=== PATIENT | female | born 1930 | race Caucasian/White ===

== ENCOUNTER 2016-08-10 12:39 | Emergency (ER) | payer MEDICARE ==
[~2016-08-10] VITALS: Ht 162.6 cm; Wt 75.0 kg
[~2016-08-10 12:39] MED LIST: AMLO-39 PO; ASPI-351 PO; ATEN100T4 PO; CREST10T PO; Calcium 600 + Vit D; INSU100I9 SUBQ; Insulin Lispro SUBQ; Isosorbide Mononitrate PO; Magnesium Oxide PO; NIAC500SA PO; POTA10TA14 PO
[2016-08-10 12:53] VITALS: BP 98/54; PULSE 63; RESP 16; O2SAT 95
--- NOTE | 2016-08-10 13:38 | ED.REPORT ---
HPI-Trauma Minor / Fall Date of Service Aug 10, 2016 ED Provider: Inocente Gonsales PA-C 85-year-old female resident of [facility] living brought in by EMS for left knee pain. She reports that she fell yesterday when she slipped on ice. Denies syncope/presyncope, dizziness. She struck her face on the pavement as well as her hands and left knee. Suffered a bloody nose. Admits increased confusion, denies headache, losing consciousness, vomiting. She is unsure if she takes blood thinners. Denies neck pain, weakness/numbness in her limbs. Has worsening pain in her left knee though she is able to ambulate using a walker, but she sometimes have sensation of the knee giving out. Complains of pain in both hands. Denies difficulty breathing, chest pain, abdominal pain, vomiting, diarrhea. Nursing Notes Stated Complaint: GLF/LEFT KNEE PAIN Chief Complaint: Multiple Trauma/Fall Nursing Notes Reviewed: Yes Allergies: Coded Allergies: Barbiturates (Verified Allergy, Unknown, 08/10/16) Penicillins (Verified Allergy, Unknown, 10/20/13) latex (Verified Allergy, Unknown, 08/10/16) metformin (Verified Allergy, Unknown, 10/20/13) metronidazole (Verified Allergy, Unknown, 10/20/13) primidone (Verified Allergy, Unknown, 10/20/13) simvastatin (Verified Allergy, Unknown, 10/20/13) trazodone (Verified Allergy, Unknown, 10/20/13) adhesive tape (Verified Adverse Reaction, Intermediate, Rash, 10/20/13) Scheduled ([Calcium 600 + Vit D]) DAILY ([Isosorbide Mononitrate]) 30 MG TABLET.ER 60 MG PO 0730 ([Insulin Lispro]) 100 UNIT/ML UNIT 0 UNIT SUBQ TID-INSULIN ([Magnesium Oxide]) 400 MG TABLET 400 MG PO BID Amlodipine (Norvasc) 5 Mg Tablet 10 MG PO DAILY Aspirin-Expunged Drug, Do Not Renew! (Aspirin-Expunged Drug, Do Not Renew!) 325 Mg Tablet 325 MG PO DAILY Atenolol-Expunged Drug, Do Not Renew! (Atenolol-Expunged Drug, Do Not Renew!) 100 Mg Tablet 50 MG PO DAILY Insulin Detemir (Levemir U100 Flexpen Insulin) 100 Unit/Ml Insuln.pen 40 UNIT SUBQ BID Niacin-Expunged Drug, Do Not Renew! (Niaspan-Expunged Drug, Do Not Renew!) 500 Mg Tablet.er 500 MG PO HS Potassium Chloride ER (Klor-Con M10) 10 Meq Tabsr 10 MEQ PO BID Rosuvastatin-Expunged Drug, Do Not Renew! (Crestor-Expunged Drug, Do Not Renew! ) 10 Mg Tablet 10 MG PO DAILY General Time Seen by MD: 12:57 Chief Complaint Fall Past Medical History Past Medical History 1. Coronary artery disease. Status post [place] around in 2003 and status post heart catheterization without intervention. Repeat heart catheterization in 2010 with multi-vessel disease, medically managed. Patient tells me she has not been back to see a screen tacker since then. 2. Hypertension. 3. Diabetes mellitus type 2. 4. Hyperlipidemia. 5. Chronic obstructive pulmonary disease. 6. Chronic kidney disease stage 3. 7. Gout. 8. Hyperlipidemia. Past Surgical History 1. Total abdominal hysterectomy and bilateral salpingo-oophorectomy. 2. Small intestinal resection. 3. Cholecystectomy Family History noncontributory Smoking History Smoker Current Status UNK Social History Lives at [facility]. Alcohol Use: Denies alcohol use Drug Use: Denies drug use Other Social History: Local resident Ambulatory Status Independent Review of Systems Negative unless stated otherwise in history of present illness Physical Exam General: Well appearing, well developed, well nourished, no acute distress. Head: Atraumatic, normocephalic. No mastoid tenderness. No raccoon eyes or Golden sign Eyes: No scleral icterus or injection. No discharge. PERRL. Vision grossly intact. Ears: Pinna and tragus nontender with manipulation. External auditory canal patent, atraumatic and without discharge. Tympanic membrane lawrence, shiny and translucent without fluid, bulging, retraction or perforation. Hearing grossly intact. Nose: 2 cm abrasion on bridge of nose as well as a 2 cm abrasion on the upper lip. Nares crusted with dried blood. Symmetrical, nares patent. No septal hematoma. No frontal or maxillary sinus tenderness. Mouth/pharynx: normal dentition, mucus membranes moist. Tonsils 2+ and symmetrical, uvula midline. Pharynx noninjected, no cobblestoning or discharge. Voice clear. Neck: Full range of motion. No midline cervical tenderness, anterior tenderness or lymphadenopathy. Trachea midline. Respiratory: Regular rate and rhythm. Breath sounds present, clear to auscultation and equal bilaterally. No respiratory distress. No increased work of breathing, speaks in complete sentences. Cardiovascular: Regular rate and rhythm, without murmur, gallop or rub. No pedal edema. Gastrointestinal: Abdomen flat and non-tender without guarding or rebound. Bowel sounds normoactive. Skin: Warm and dry. Left hip: Nontender full range of motion. Left knee: Small abrasions over patella, no obvious effusion. Isolated patellar tenderness. No Pavon's cyst. Left ankle: Nontender full range of motion. DP and PT pulses not appreciated bilaterally. Left hand: Bruising over the thenar eminence and first metacarpal. Moderate anatomical snuffbox tenderness and tenderness with axial loading of the first metacarpal. Full strength and range of motion in MCP, PIP and DIP joints Left elbow: Nontender, full range of motion Right hand: Normal to inspection, mild tenderness over the thenar eminence and anatomical snuffbox. Minimal tenderness with axial loading of the first metacarpal. Full strength and range of motion in MCP, PIP and DIP joints Right elbow: Nontender, full range of motion Neurological: Sensation and strength grossly intact and distal extremities Cranial nerves: Vision grossly intact, PERRL, EOMI. Facial motion symmetrical, sensation to light touch over forehead, maxilla and mandible present and equal B /L. Voice clear and fluent, no drooling/pooling of saliva, uvula rises midline. Psychological: Alert and oriented. Speech appropriate, linear and logical. Behavior appropriate. Initial Vital Signs Vital Signs (First) Date Time Temp Pulse Resp B/P Pulse Ox O2 Delivery O2 Flow Rate FiO2 08/10/16 12:53 36.1 63 16 98/54 95 Room Air Initial VS: Reviewed, Vital signs normal Interpretation & Diagnostics X-Ray Interpretation Xray Interpretation: PROCEDURE: X-RAY LEFT HAND, MINIMUM THREE VIEWS ([id number]) INDICATIONS: scaphoid tenderness IMPRESSION: No acute fracture. No osseous lesion. If symptoms and/or clinical suspicion for pathology persist, further assessment with repeat, or advanced imaging (e.g., CT, MRI, or bone scan) may be helpful for further assessment. Osteoarthritis. Osteopenia. PROCEDURE: X-RAY RIGHT HAND, MINIMUM THREE VIEWS ([id number]) INDICATIONS: scaphoid tenderness IMPRESSION: No acute fracture. No osseous lesion. If symptoms and/or clinical suspicion for pathology persist, further assessment with repeat, or advanced imaging (e.g., CT, MRI, or bone scan) may be helpful for further assessment. PROCEDURE: X-RAY LEFT KNEE, ONE OR TWO VIEWS ([id number]) INDICATIONS: PAIN/ GROUND LEVEL FALL IMPRESSION: 1. Knee joint effusion. 2. No acute fracture. No osseous lesion. If symptoms and/or clinical suspicion for pathology persist, further assessment with repeat, or advanced imaging (e.g., CT, MRI, or bone scan) may be helpful for further assessment. CT Head Interpretation PROCEDURE: CT BRAIN WITHOUT CONTRAST ([id number]) INDICATIONS: fall, facial trauma IMPRESSION: No acute intracranial abnormality. CT C-Spine Interpretation PROCEDURE: CT CERVICAL SPINE WITHOUT CONTRAST ([id number]) INDICATIONS: fall, facial trauma IMPRESSION: 1. No fracture. 2. Multilevel degenerative disc and facet disease Re-Eval/Medical Decision Med Decision/Clinical Course Attending note: I saw and reevaluated this patient at the request of our physician chemical laboratory assistant. I agree with his discharge plan. There is no anatomic snuffbox tenderness at either wrist. PA medical decision [age]-year-old female presents with a chief complaint of left knee pain following a fall yesterday. She reports slipping and falling on ice, catching herself with her hands and striking her face against the pavement. She denies losing consciousness, vomiting, headache but admits to a sense of confusion. Complains of pain in both hands as well as her left knee. She is able to ambulate and the knee using a walker at home, but finds it painful. Physical exam reveals abrasions to the patient's nose and upper lip, bruising over the left thumb as well as tenderness over both thenar eminences with question of anatomical snuffbox tenderness. Left knee has isolated patellar tenderness and a small abrasion. No laxity, redness, swelling, heat or effusion noted. Perform CT of the brain justified by the [place] head CT rules based on age. Results normal. Perform CT of the cervical spine. I do not feel I can clear her by Nexus criteria due to her concern for other injuries and confusion. Results negative X-rays of the hands reveal no bony injuries. Reexamination by both myself and Dr. Campbell are negative for snuffbox tenderness. X-rays of the knee reveals effusion but no bony injury. At this point I am reassured there is no serious intracranial injury, cervical spine injury, fractures, occult scaphoid fractures, knee fracture or spontaneously reduced knee dislocation. Placed knee in a long knee immobilizer, road tested her with a walker. She feels ready for discharge and return to her residence. Advise primary care follow-up, provided emergency return precautions. Patient understands and agrees with the plan. Re-Evaluation/Progress : Time of Eval: 15:09 Re-Evaluation/Progress Note: Discussed the x-ray findings with the patient. I reexamined her hands. I thought her left hand still quite tender however tenderness appears to be centered over the proximal phalanx, with only mild tenderness at the anatomical snuffbox. Her right hand is significantly less tender at this point, with essentially no tenderness over the anatomical snuffbox or with axial loading of the first metacarpal. Discharge & Departure Impression: Primary Impression: Knee effusion, left Additional Impressions: Contusion of left hand Encounter type: initial encounter Qualified Code: S60.222A - Contusion of left hand, initial encounter Contusion of right hand Encounter type: initial encounter Qualified Code: S60.221A - Contusion of right hand, initial encounter Head contusion Encounter type: initial encounter Contusion of head detail: nose Qualified Code: S00.33XA - Contusion of nose, initial encounter Disposition: Home Discharge Condition All VS Reviewed: Yes Condition: Stable Patient Instructions: Contusions in Adults (ED), Splint Care (ED) Additional Instructions: Evaluation in the emergency department following a fall. CT scans of your head and neck revealed no brain or cervical spine injury. X-rays of your hands and left knee revealed no fractures. You do have fluid in your knee which is likely causing some of your pain. I believe you suffered a number of contusions in your fall. Your pain and swelling should resolve on its own over the next week or so. I will give you a brace to support your left knee while it heals. Use this along with your walker as long as you feel unstable. Follow -up with your primary care provider in the next few days to monitor your progress. Elevate your knee as much as possible. The pain is best treated with 400 mg of ibuprofen (Advil, Motrin) every 6 hours, or 650 mg of acetaminophen (Tylenol) every 6 hours. These drugs can be taken at the same time for more severe pain. Return to emergency department for any new or worsening symptoms including increasing pain, severe or sudden headache, difficulty speaking, new neurological symptoms. Referrals: Dexter Diehl MD (PCP) EDSupervising Provider for APC: Robert Thompson DO Attending Statement I have seen and examined the patient. I have reviewed the chart and agree with the documentation as recorded by the Midlevel Provider, including assessment, treatment plan, and disposition. Findings from my exam are included in documentation above. copies to: Dexetr Diehl MD, Seth PA-C Aug 10, 2016 13:38 Robert Thompson DO Aug 10, 2016 15:37
--- NOTE | 2016-08-10 14:15 | DRSVH ---
PROCEDURE: CT BRAIN WITHOUT CONTRAST ([id number]) INDICATIONS: fall, facial trauma TECHNIQUE: Noncontrast 4.5 mm thick angled axial sections acquired from the foramen magnum to the vertex, with c oronal reformats. COMPARISON: None. FINDINGS: Image quality: Excellent. CSF spaces: Basal cisterns are patent. No extra-axial fluid collections. The ventricles are symmet silvio in size and shape. Brain: No intracranial bleeds or masses. There is cerebral volume loss for age, with resultant vent ricular and sulcal prominence. There are periventricular and deep white matter chronic small vessel ischemic changes. There is intracranial internal carotid artery atherosclerosis. Skull and face: Calvarium and visualized facial bones appear intact, without suspicious lesions. Sinuses: Visualized sinuses and mastoids are clear. IMPRESSION: No acute intracranial abnormality. Dictated by: Kathy Ellis M.D. on 08/10/2016 at 14:12 Approved by: Kathy Ellis M.D. on 08/10/2016 at 14:13
--- NOTE | 2016-08-10 14:17 | DRSVH ---
PROCEDURE: CT CERVICAL SPINE WITHOUT CONTRAST ([id number]) INDICATIONS: fall, facial trauma TECHNIQUE: Noncontrast 3 mm thick sections acquired from the skull base to the T4 level. Sagittal and coronal r eformats were then constructed. For radiation dose reduction, the following was used: automated exp osure control, adjustment of mA and/or kV according to patient size. COMPARISON: None. FINDINGS: Image quality: Excellent. Bones: No fractures or dislocations. Visualized superior ribs are intact. Multilevel endplate oste ophytes and disc space narrowing. Multilevel facet hypertrophy. Mild grade 1 anterolisthesis of C4 on C5. Mild grade 1 anterolisthesis of C6 on C7. Soft tissues: Prevertebral soft tissues are normal in thickness. No paravertebral hematomas. No ap ical pneumothoraces. IMPRESSION: 1. No fracture. 2. Multilevel degenerative disc and facet disease. Dictated by: Kathy Ellis M.D. on 08/10/2016 at 14:13 Approved by: Kathy Ellis M.D. on 08/10/2016 at 14:15
--- NOTE | 2016-08-10 14:48 | DRSVH ---
PROCEDURE: X-RAY LEFT KNEE, ONE OR TWO VIEWS ([id number]) INDICATIONS: PAIN/ GROUND LEVEL FALL TECHNIQUE: 2 views of the knee were acquired. COMPARISON: None. FINDINGS: Bones: No fractures or dislocations. No suspicious bony lesions. Soft tissues: Moderate knee joint effusion. No suspicious soft tissue calcifications. IMPRESSION: 1. Knee joint effusion. 2. No acute fracture. No osseous lesion. If symptoms and/or clinical suspicion for pathology persist, further assessment with repeat, or advanced imaging (e.g., CT, MRI, or bone scan) may be helpful for further assessment. Dictated by: Kathy Ellis M.D. on 08/10/2016 at 14:42 Approved by: Kathy Ellis M.D. on 08/10/2016 at 14:42
--- NOTE | 2016-08-10 14:49 | DRSVH ---
PROCEDURE: X-RAY RIGHT HAND, MINIMUM THREE VIEWS ([id number]) INDICATIONS: scaphoid tenderness TECHNIQUE: 3 views of the hand(s) acquired. COMPARISON: None. FINDINGS: Bones: No fractures or dislocations. Carpal bones are normally aligned. No suspicious bony lesions . Soft tissues: No suspicious soft tissue calcifications. IMPRESSION: No acute fracture. No osseous lesion. If symptoms and/or clinical suspicion for patholog y persist, further assessment with repeat, or advanced imaging (e.g., CT, MRI, or bone scan) may be h elpful for further assessment. Dictated by: Kathy Ellis M.D. on 08/10/2016 at 14:43 Approved by: Kathy Ellis M.D. on 08/10/2016 at 14:43
--- NOTE | 2016-08-10 14:49 | DRSVH ---
PROCEDURE: X-RAY LEFT HAND, MINIMUM THREE VIEWS ([id number]) INDICATIONS: scaphoid tenderness TECHNIQUE: 3 views of the hand(s) acquired. COMPARISON: None. FINDINGS: Bones: Diffuse osteopenia. Joint space narrowing and periarticular osteophyte formation at the 1st c arpometacarpal joint. No fractures or dislocations. Carpal bones are normally aligned. No suspiciou s bony lesions. Soft tissues: No suspicious soft tissue calcifications. IMPRESSION: No acute fracture. No osseous lesion. If symptoms and/or clinical suspicion for patholog y persist, further assessment with repeat, or advanced imaging (e.g., CT, MRI, or bone scan) may be h elpful for further assessment. Osteoarthritis. Osteopenia. Dictated by: Kathy Ellis M.D. on 08/10/2016 at 14:42 Approved by: Kathy lElis M.D. on 08/10/2016 at 14:43
[2016-08-10 15:21] VITALS: BP 103/56; PULSE 57; RESP 20; O2SAT 93
[2016-08-10 18:00] VITALS: BP 132/67; PULSE 74; RESP 16; O2SAT 98
== END 2016-08-10 18:02 | disposition home or self-care (01) ==
LOC: SED 12:39 → EDBD 12:39 → EDUNIT# 12:39 → SED 18:02
DX: M25.462 Effusion, left knee (principal); S60.221A Contusion of right hand, initial encounter; S60.222A Contusion of left hand, initial encounter; S00.33XA Contusion of nose, initial encounter; W00.0XXA Fall on same level due to ice and snow, initial encounter; Y92.9 Unspecified place or not applicable; Y93.9 Activity, unspecified; Y99.9 Unspecified external cause status; I25.10 Atherosclerotic heart disease of native coronary artery without angina pectoris; I25.2 Old myocardial infarction; I12.9 Hypertensive chronic kidney disease with stage 1 through stage 4 chronic kidney disease, or unspecified chronic kidney disease; N18.3 Chronic kidney disease, stage 3 (moderate); E11.22 Type 2 diabetes mellitus with diabetic chronic kidney disease; E78.5 Hyperlipidemia, unspecified; J44.9 Chronic obstructive pulmonary disease, unspecified; M10.9 Gout, unspecified; Z79.82 Long term (current) use of aspirin; Z79.4 Long term (current) use of insulin; Z88.0 Allergy status to penicillin; Z88.8 Allergy status to other drugs, medicaments and biological substances

== ENCOUNTER 2016-09-17 08:31 | Inpatient (IN) | payer MEDICARE ==
[2016-09-17] VITALS (9 sets, daily range): BP systolic 133–168; BP diastolic 47–78; PULSE 58–73; RESP 17–26; O2SAT 92–98
[~2016-09-17] VITALS: Ht 162.6 cm; Wt 73.0 kg
[2016-09-17 08:55] LABS: BASOPHILS % (AUTO) 0.2 % (0-3); EOSINOPHILS % (AUTO) 2.9 % (0-5); MONOCYTES % (AUTO) 5.9 % (4-12); Mean Corpuscular Hemoglobin 28.5 pg (27.0-35.0); Mean Corpuscular Volume 84.8 fL (81-100); NEUTROPHILS % (AUTO) 69.6 % (40-74); Platelet Count 270 bil/L (150-400)
[2016-09-17] MEDS ORDERED: Ondansetron 2 mg/mL 2 mL Inj IVPUSH PRN ×2 (08:55→13:40)
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
--- NOTE | 2016-09-17 09:21 | DRSVH ---
PROCEDURE: X-RAY CHEST ONE VIEW, PORTABLE ([id number]) INDICATIONS: CHEST PAIN TECHNIQUE: One view of the chest was acquired. COMPARISON: [facility], CR, CHEST 1VW (PORTABLE), 12/31/2013, 23:52. [facility], CT, CHEST ANGIO-PE, 10/15/2013, 0:03. [facility], CR, CHEST 1VW (PORTABLE), 4, 11:59. FINDINGS: Surgical changes and devices: None. Lungs and pleura: The aeration of the lungs is similar to the previous exam. There is no focal conso lidation, effusion, or pneumothorax. No overt heart failure is evident. Mediastinum: Mediastinal contours appear normal. Heart size is normal. There is prominent aortic a therosclerosis. Bones and chest wall: No suspicious bony lesions. Overlying soft tissues appear unremarkable. IMPRESSION: Stable chest. No acute cardiopulmonary process is evident. Dictated by: Richie Goncalves M.D. on 09/17/2016 at 8:18 Approved by: Richie Goncalves M.D. on 09/17/2016 at 8:19
[2016-09-17 09:27] LABS: TROPONIN T < 0.010 ug/L (0.0-0.011)
[2016-09-17 09:33] LABS: Magnesium 1.6 mg/dL (1.6-2.6)
[2016-09-17] MEDS ORDERED: Nitroglycerin 2% 1 Gm Ointment TOPICAL SCH (10:20)
--- NOTE | 2016-09-17 13:01 | DRSVH ---
PROCEDURE: CT ANGIO CHEST PULMONARY EMBOLISM ([id number]) INDICATIONS: CP, dimer TECHNIQUE: After the administration of intravenous contrast, 2 mm thick sections acquired from the pulmonary api loraine to the posterior costophrenic angles. 3-dimensional maximum intensity projection (MIP) coronal a nd sagittal reformats were then acquired through the thorax. For radiation dose reduction, the follo wing was used: automated exposure control, adjustment of mA and/or kV according to patient size. COMPARISON: [facility], CT, CHEST ANGIO-PE, 01/01/2014, 1:58. FINDINGS: Image quality: Excellent. Pulmonary arteries: Pulmonary arteries are normal in size, and demonstrate no intraluminal filling d efects to suggest central pulmonary embolism. Lungs and pleura: Lungs are clear. There is mild centrilobular emphysema with apical predominance. No pleural effusions or pneumothorax. Central and peripheral airways are patent. Mediastinum: Heart size is normal, without pericardial effusion. No mediastinal or hilar adenopathy . Thoracic aorta is normal in caliber and enhancement. Scattered atheromatous calcifications are pre sent within the aortic arch. Esophagus is normal in caliber. There is a small hiatal hernia. Bones and chest wall: No suspicious bony lesions. Ribs and thoracic spine appear intact throughout. 2 low-density expansile lesions are present within the right thyroid lobe. These were present on the study dated 01/01/14 and are similar in size. Left thyroid lobe is unremarkable. No axillary or supra clavicular adenopathy. Abdomen: Visualized upper abdominal solid organs appear normal in the early arterial phase of enhanc ement. IMPRESSION: 1. No acute pulmonary embolus. 2. Low-density lesions within the right thoracic lobe. If further characterization is warranted, none mergent pelvic ultrasound may be helpful. Dictated by: Laura Licona M.D. on 09/17/2016 at 12:51 Approved by: Laura Licona M.D. on 09/17/2016 at 12:57
[2016-09-17] MEDS ORDERED: Polyethylene Glycol (PEG) 17 Gm Powder PO PRN (13:40)
[2016-09-17] MEDS ORDERED: Alum-Mag Hydrox-Simeth 30 mL Suspension PO PRN ×2 (13:40→21:05)
[2016-09-17] MEDS ORDERED: ASPI325T32 PO (13:54)
[2016-09-17] MEDS ORDERED: CHOL200047 PO (13:54)
[2016-09-17] MEDS ORDERED: CITA20TA11 PO (13:54)
[2016-09-17] MEDS ORDERED: MAG-95 PO (13:54)
[2016-09-17] MEDS ORDERED: INSU100V4 SUBQ ×2 (13:54)
[2016-09-17] MEDS ORDERED: ACET325C PO (13:54)
[2016-09-17] MEDS ORDERED: LORA10CA PO (13:54)
[2016-09-17] MEDS ORDERED: LOPE2CAP PO (13:54)
[2016-09-17] MEDS ORDERED: ISOS60TA2 PO (13:54)
[2016-09-17] MEDS ORDERED: PROP160C2 PO (13:54)
[2016-09-17] MEDS ORDERED: MAGN400O4 PO (13:54)
[2016-09-17] MEDS ORDERED: INSLIS SUBQ ×3 (13:54)
[2016-09-17] MEDS ORDERED: AMLO10TA3 PO (13:54)
[2016-09-17] MEDS ORDERED: ROSU10TA24 PO (13:54)
[2016-09-17] MEDS ORDERED: DEXT1DRO8 BOTH_EYES (13:54)
[2016-09-17] MEDS ORDERED: HYDROmorphone 0.5 mg/0.5 mL iSecure Syringe IVPUSH ONE ×2 (14:40→16:15)
--- NOTE | 2016-09-17 17:01 | NUR ---
ADMIT Pt arrived to unit from ED at 1701. Pt ambulated to restroom with this RN and FFW, steady gait. Per ED report patient had one BM and voidedX2. Pt reported recent fall; fall precautions in place and bed alarm on. Vital signs WNL. Pt is alert and oriented to self only. Pt complained of 5/10 left upper breast pain. Administered 650mg PO Tylenol. MD at beside upon arrival. Pt tolerated PO food and fluids with out any difficulty. Med rec completed by admit nurse.
--- NOTE | 2016-09-17 19:36 | PCM.HPMED ---
Subjective Date of Service Sep 17, 2016 Primary Provider: Admitting Physician: Keny Burrell MD Primary Care Physician: Dexter Diehl MD Attending Physician: Keny Burrell MD Chief Complaint: Chest pain History of Present Illness: The patient is an 85-year-old white female with dementia, coronary disease, hypertension, COPD and diabetes who was unable to tell me where she lives due to her dementia and poor memory. She according to the records lives at [facility] and she began complaining of what she initially told me was leg cramps. She had forgotten Kellee Mendez about the chest pain. I asked her about the chest pain she then described that she had severe chest pain this morning that made her want to "scream". According to the records the patient began complaining to the staff at [facility] of intermittent moderate chest pain/ pressure with an onset around 8 AM. The pain radiated to her left arm at the time. So should his symptoms included shortness of breath, left knee pain, chest pain with movement. Patient denied diaphoresis, nausea, lower extremity swelling. The patient reported that she went to get up and this morning and had instant pain in her left chest radiating to her left breast. Pain was exacerbated by movement. The patient reported to me that she fell a couple of days prior to admission. She then stated 4 days prior to admission. She then after that stated a week prior to admission. And according to the medical record in the ER doctor's note she stated that she fell a couple weeks prior to admission. She stated that she tripped on a seen on the concrete sidewalk outside of the [facility] manner. She said when she fell she landed on her hands with the palms down to prevent her from hitting her face and her right knee she states that the staff at [facility] has been putting ice on her right knee is starting to feel better. Today she woke up with chest pain which along this episode lasted for approximately 15 minutes. She denied any previous chest pain with movement following the fall denies any head injury following a fall. Patient was evaluated in the emergency room by Dr. Quincy Harley. The patient was found to have a slightly elevated white blood cell count of 11.9 her CBC was otherwise unremarkable. Troponin was drawn which was less than 0.010 and a magnesium level was found to be low at 1.6 there are no acute findings evident on EKG which showed normal sinus rhythm with a rate of 62, there was left ventricular hypertrophy, there is evidence of previous inferior and anterior infarct, overall however the EKG was unchanged compared with 2010 a d-dimer was performed which was found to be marginally elevated the CT Michael Wills was obtained and this was negative for pulmonary embolism. The patient received aspirin and Nitropaste. Given her elevated HEART score the patient was brought in under observation to the hospital service for further evaluation and treatment. Review of Systems: General: Patient has no general complaints other than a reduction in her ability to remember things. HEENT: Patient has no headache, patient has no diplopia, patient has no changes in vision. Patient had left eye cataract surgery. Patient has no problems with their ears, nose or throat. Patient has no known new dental problems. Patient has no pharyngitis or history of thrush. Neck: Patient has no stiffness in the neck. Patient has no lymphadenopathy. Patient has no other problems with their neck. Pulmonary: Patient has no shortness of breath, no cough, no expectoration of sputum. Patient has no pleurisy. Patient has chest pain with movement and pressure applied to the anterior part of her left breast/chest. Patient has no history of asthma or COPD. Cardiovascular: Patient has no chest pain at current time. For description of previous chest pain please refer to history of present illness. Patient has no history of heart murmur. Patient has no palpitations. Patient has a history of a myocardial infarction in 2003. Patient has history of coronary artery disease. She underwent a coronary artery catheterization in 2010 was found to have multivessel disease which of the time was medically managed. Gastrointestinal: Patient has no history of hepatitis A, B or C. Patient has no history of peptic ulcer disease. Patient has no history of gastroesophageal reflux disease. Patient has no history of nausea, vomiting, or diarrhea. Patient has no history of hematemesis, hematochezia, or melena. Patient has no history of colitis. Renal: Patient has no history of kidney disease. No history of kidney stones. Genitourinary: Patient has no history of dysuria or frequency, or incontinence. Patient has no previous history of genitourinary problems. Musculoskeletal: Patient has no history of muscular skeletal problems. Neurologic: Patient has no history of stroke, no history of seizure, no history of TIA. However she has had some situational depression as she lost her of over 62 years and her oldest daughter within the last year. Psychiatric: Patient has no history of psychiatric problems. The remainder of the entire review of systems was reviewed with patient and is as mentioned above otherwise negative. Allergies Coded Allergies: Barbiturates (Verified Allergy, Unknown, 09/17/16) Penicillins (Verified Allergy, Unknown, 09/17/16) latex (Verified Allergy, Unknown, 09/17/16) metformin (Verified Allergy, Unknown, 09/17/16) metronidazole (Verified Allergy, Unknown, 09/17/16) primidone (Verified Allergy, Unknown, 09/17/16) simvastatin (Verified Allergy, Unknown, 09/17/16) trazodone (Verified Allergy, Unknown, 09/17/16) adhesive tape (Verified Adverse Reaction, Intermediate, Rash, 09/17/16) PMH 1. Coronary artery disease. Status post HI around in 2003 and status post heart catheterization without intervention. Repeat heart catheterization in 2010 with multi-vessel disease, medically managed. 2. Hypertension. 3. Diabetes mellitus type 2. 4. Hyperlipidemia. 5. Chronic obstructive pulmonary disease. 6. Chronic kidney disease stage 3. 7. Gout. 8. Hyperlipidemia. 9. History of dementia Surgical History 1. Total abdominal hysterectomy and bilateral salpingo-oophorectomy. 2. Small intestinal resection. 3. Cholecystectomy 4. s/p cardiac catherization 2010 5. Left eye cataract surgery Family History The patient's mother at 87 palpitations of diabetes mellitus. The patient thinks her father at the age of 85 of cancer she does not know what type. The patient has 7 sisters they have all of cancer or heart disease. One of breast cancer. The patient had 2 brothers both of cancer. She was unable to elaborate on any of the cancer diagnoses other than the one sister with breast cancer. Social History Occupation: retired Hx Alcohol Use: No Hx Substance Use: No Hx Tobacco Use: Yes (3-5 cigs/day) Smoking Status: Current Every Day Smoker (The patient currently smokes one half pack per day.) Living Arrangement: Assisted Living (The patient lives at [facility].) Additional Information The patient warmed was born in [facility]. She met her while he was on a cruise in [place]. She her at the age of 22. She stayed to him until his within the last year. Patient was for over 62 years. Patient completed the ninth grade and never went further in school. She is 2 para 2 with one daughter who lives in [place] and an older daughter who of cancer. Patient denies drinking a significant amount of alcohol. She states she was not much of a drinker. She still smokes since continues to smoke a half pack per day right up until the time of admission. She lives at [facility]. Exam Vital Signs Vital Sign - Last Date Time Temp Pulse Resp B/P Pulse Ox O2 Delivery O2 Flow Rate FiO2 09/17/16 17:14 64 09/17/16 17:01 36.5 19 144/78 96 Room Air Exam General: Patient is in no apparent distress. HEENT: Head is atraumatic and normocephalic. Eyes: Pupils are equally round and reactive to light and accommodation. Extraocular muscles are intact. Sclera are white, anicteric. Subconjunctival mucosa is pink. Ears and nose are unremarkable. Oropharynx: There is no mucosal lesions, there is no thrush, there is no pharyngitis. Neck: Is supple, there are no nodes, or masses or tenderness. Chest: Is clear to auscultation and percussion. There are no rales, rhonchi, wheezes or rubs. There is tenderness over the left breast and chest wall in the right upper quadrant and left upper quadrant of the breast. The left breast was examined with the 2 female nursing scheduler present. The right breast was not examined at this time. There is no erythema, there was no masses , there is no increased warmth or any other sign of infection of the left breast. There is no discharge from the nipple. Heart: Rate, rhythm is regular. There is no murmur, rub or gallop. Abdomen: Good bowel sounds are present. Abdomen is soft, nontender, no organomegaly or masses were appreciated. Extremities: Are symmetrical and well perfused. There is no edema, there is no cellulitis, no rash. Neurologic: There are no focal neurological deficits. Cranial nerves II through XII are intact. There are no sensory or motor deficits. However, the patient has very poor memory and is a very poor historian. She could not tell me where she lives and she initially could not tell me about her chest pain until I mentioned it. Once her memory was jagged however she was able to expound on the history of her chest pain etc. Psychiatric: Patients mood is calm and shows no sign of agitation. Genital: Deferred Rectal: Deferred Lab and Diagnostics Result Diagram: 09/17/16 0835 09/17/16 0835 X-Rays, CTs and MRIs PROCEDURE: CT ANGIO CHEST PULMONARY EMBOLISM ([id number]) INDICATIONS: CP, dimer TECHNIQUE: After the administration of intravenous contrast, 2 mm thick sections acquired from the pulmonary apices to the posterior costophrenic angles. 3-dimensional maximum intensity projection (MIP) coronal and sagittal reformats were then acquired through the thorax. For radiation dose reduction, the following was used: automated exposure control, adjustment of mA and/or kV according to patient size. COMPARISON: [facility], CT, CHEST ANGIO-PE, 01/01/2014, 1:58. FINDINGS: Image quality: Excellent. Pulmonary arteries: Pulmonary arteries are normal in size, and demonstrate no intraluminal filling defects to suggest central pulmonary embolism. Lungs and pleura: Lungs are clear. There is mild centrilobular emphysema with apical predominance. No pleural effusions or pneumothorax. Central and peripheral airways are patent. Mediastinum: Heart size is normal, without pericardial effusion. No mediastinal or hilar adenopathy. Thoracic aorta is normal in caliber and enhancement. Scattered atheromatous calcifications are present within the aortic arch. Esophagus is normal in caliber. There is a small hiatal hernia. Bones and chest wall: No suspicious bony lesions. Ribs and thoracic spine appear intact throughout. 2 low-density expansile lesions are present within the right thyroid lobe. These were present on the study dated 01/01/14 and are similar in size. Left thyroid lobe is unremarkable. No axillary or supraclavicular adenopathy. Abdomen: Visualized upper abdominal solid organs appear normal in the early arterial phase of enhancement. IMPRESSION: 1. No acute pulmonary embolus. 2. Low-density lesions within the right thoracic lobe. If further characterization is warranted, nonemergent pelvic ultrasound may be helpful. Dictated by: Laura Licona M.D. on 09/17/2016 at 12:51 Approved by: Laura Licona M.D. on 09/17/2016 at 12:57 PROCEDURE: X-RAY CHEST ONE VIEW, PORTABLE ([id number]) INDICATIONS: CHEST PAIN TECHNIQUE: One view of the chest was acquired. COMPARISON: [facility], CR, CHEST 1VW (PORTABLE), 12/31/2013, 23: 52. [facility], CT, CHEST ANGIO-PE, 10/15/2013, 0:03. [facility], CR, CHEST 1VW (PORTABLE), 10/13/2013, 11:59. FINDINGS: Surgical changes and devices: None. Lungs and pleura: The aeration of the lungs is similar to the previous exam. There is no focal consolidation, effusion, or pneumothorax. No overt heart failure is evident. Mediastinum: Mediastinal contours appear normal. Heart size is normal. There is prominent aortic atherosclerosis. Bones and chest wall: No suspicious bony lesions. Overlying soft tissues appear unremarkable. IMPRESSION: Stable chest. No acute cardiopulmonary process is evident. Dictated by: Richie Goncalves M.D. on 09/17/2016 at 8:18 Approved by: Richie Goncalves M.D. on 09/17/2016 at 8:19 Assessment & Plan The patient is an 85-year-old white female with dementia, coronary disease, hypertension, COPD and diabetes who was unable to tell me where she lives due to her dementia and poor memory. She according to the records lives at [facility] and she began complaining of what she initially told me was leg cramps. She had forgotten Kellee Mendez about the chest pain. I asked her about the chest pain she then described that she had severe chest pain this morning that made her want to "scream". According to the records the patient began complaining to the staff at [facility] of intermittent moderate chest pain/ pressure with an onset around 8 AM. The pain radiated to her left arm at the time. So should his symptoms included shortness of breath, left knee pain, chest pain with movement. Patient denied diaphoresis, nausea, lower extremity swelling. The patient reported that she went to get up and this morning and had instant pain in her left chest radiating to her left breast. Pain was exacerbated by movement. The patient reported to me that she fell a couple of days prior to admission. She then stated 4 days prior to admission. She then after that stated a week prior to admission. And according to the medical record in the ER doctor's note she stated that she fell a couple weeks prior to admission. She stated that she tripped on a seen on the concrete sidewalk outside of the [facility] manner. She said when she fell she landed on her hands with the palms down to prevent her from hitting her face and her right knee she states that the staff at [facility] has been putting ice on her right knee is starting to feel better. Today she woke up with chest pain which along this episode lasted for approximately 15 minutes. She denied any previous chest pain with movement following the fall denies any head injury following a fall. Patient was evaluated in the emergency room by Dr. Quincy Harley. The patient was found to have a slightly elevated white blood cell count of 11.9 her CBC was otherwise unremarkable. Troponin was drawn which was less than 0.010 and a magnesium level was found to be low at 1.6 there are no acute findings evident on EKG which showed normal sinus rhythm with a rate of 62, there was left ventricular hypertrophy, there is evidence of previous inferior and anterior infarct, overall however the EKG was unchanged compared with 2010 a d-dimer was performed which was found to be marginally elevated the CT Michael Wills was obtained and this was negative for pulmonary embolism. The patient received aspirin and Nitropaste. Given her elevated HEART score the patient was brought in under observation to the hospital service for further evaluation and treatment. # Chest pain - Patient does have a history of coronary disease and myocardial infarction so certainly could be due to acute coronary syndrome - However, due to the description of the pain being in her left breast and the tenderness in the upper right and left quadrants of her left breast and chest wall suspect this is atypical chest pain related to musculoskeletal injury due to her recent fall on cement. - We will trend troponins - We will control pain with analgesics beginning with Tylenol. We may need to start anti-inflammatory medication such as Toradol which comes with a greater risk of bleeding etc. - We will consider nuclear stress testing due to the history of coronary artery disease and prior myocardial infarction. # Type II diabetes mellitus - We will check blood sugars before meals and at bedtime - We will provide sliding scale subcutaneous insulin coverage - Continue home insulin regimen # Hypertension - Stable at present time - Continue home medications with amlodipine and propranolol. - We will monitor closely # Hyperlipidemia - We will continue Crestor # Chronic obstructive pulmonary disease - Continue close observation # Chronic kidney disease stage 3 - We will try to avoid nephrotoxic agents. - Monitor renal function closely. Disposition: Patient is being brought in under observation as she is expected to be here less than 2 midnights. Pain Evaluation: Adequate Pain Control GI Prophylaxis: Proton Pump Inhibitor VTE Prophylaxis: Sub-Q Enoxaparin Resuscitation Status: CPR: Attempt Resuscitation Keny Burrell MD Sep 17, 2016 19:36
[2016-09-17] MEDS ORDERED: Glucose 40% Oral Gel 15 Gm Tube PO PRN (20:55)
[2016-09-17] MEDS ORDERED: Insulin GLARgine 100 Unit/mL Syringe SUBQ SCH (21:00)
[2016-09-17] MEDS ORDERED: Magnesium Hydroxide 10 mL Oral Concentration PO PRN (21:25)
[2016-09-17] MEDS ORDERED: Artificial Tears 15 mL Ophthalmic Solution BOTH_EYES PRN (21:35)
[2016-09-17] MEDS ORDERED: Magnesium Sulf 4 Gm/100 mL H2O 4 GM in IV Premix 1 EACH IV ONE (21:45)
[2016-09-17] MEDS ORDERED: Insulin LISPRO 300 Unit/3 mL Inj SUBQ SCH (22:00)
[2016-09-18] VITALS (9 sets, daily range): BP systolic 103–163; BP diastolic 52–78; PULSE 52–80; RESP 16–18; O2SAT 91–98
[2016-09-18 00:09] LABS: APPEARANCE,URINE CLEAR (CLEAR,HAZY); COLOR,URINE YELLOW (YELLOW); OCCULT BLOOD,URINE NEGATIVE (NEGATIVE); PH,URINE 6.5 (5.0-8.0)
[2016-09-18] MEDS: Insulin Human REGular 300 Unit/3 mL Inj SUBQ SCH ×2 (02:41→09:10)
[2016-09-18 03:03] LABS: BASOPHILS % (AUTO) 0.2 % (0-3); EOSINOPHILS % (AUTO) 1.2 % (0-5); MONOCYTES % (AUTO) 7.4 % (4-12); Mean Corpuscular Hemoglobin 28.1 pg (27.0-35.0); NEUTROPHILS % (AUTO) 63.5 % (40-74); Platelet Count 239 bil/L (150-400)
[2016-09-18 03:46] LABS: Magnesium 2.7 mg/dL (1.6-2.6); Phosphorus 3.5 mg/dL (2.5-4.9)
--- NOTE | 2016-09-18 04:21 | NUR ---
PT ACTIVITY/PAIN Pt has slept intermittently during shift. Pt forgetful, does not use call light. Pt has been up to BR, SBA, steady on feet. Pt did have c/o "5 to 7" left chest/breast pain. Pain "stabbing" per pt description. Pt states pain w/ coughing and movement. Pt states laying on her left side helps to alleviate pain. Pt given prn pain medication, able to sleep, no further c/o pain. Continue to monitor. Call light in reach. Bed alarm on. Intentional rounding.
[2016-09-18] MEDS: Propranolol LA 80 mg ER24 Capsule PO SCH (08:40)
[2016-09-18] MEDS: Pantoprazole 40 mg ER24 Tablet PO SCH (08:41)
[2016-09-18] MEDS: Isosorbide Mononitrate 60 mg ER24 Tablet PO SCH (08:41)
[2016-09-18] MEDS: Insulin GLARgine 100 Unit/mL Syringe SUBQ SCH ×2 (09:04→20:19)
--- NOTE | 2016-09-18 10:52 | NUR ---
Spoke with [facility] nurse yesterday and this patient comes from assisted living side. Updated [facility]ODER and we will follow up today about needing onsite.
[2016-09-18] MEDS ORDERED: Insulin LISPRO 300 Unit/3 mL Inj SUBQ SCH ×2 (12:00→17:30)
[2016-09-18] MEDS: Insulin LISPRO Medium-Dose Scale SUBQ SCH ×3 (12:04→20:19)
--- NOTE | 2016-09-18 12:43 | NUR ---
Case Management: Attempted to give SPEARS; pt. is demented and has no NOK listed on chart. Contacted [facility],[phone] and spoke with Cher. Pt. 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
[2016-09-18] MEDS: Ketorolac 15 mg/mL Inj IVPUSH PRN (13:11)
[2016-09-18] MEDS: Lidocaine Topical 5% Patch TOPICAL SCH (13:11)
--- NOTE | 2016-09-18 14:55 | NUR ---
Social Work: Initial Assessment / Readiness for d/c Data: Pt is an 85 y/o female admitted for chest pain. Pt's PCP is Dr Diehl, pt's insurance is Medicare. EMR reviewed. Readmit score is 4, high. ALLOCATIONS CLERK spoke with [facility] where pt resides regarding initial assessment as pt has dementia. RN from [facility] states pt has a walker and only uses it occasionally, pt does not drive, has no hx of HH or SNF, LTC and VA status unknown. states that pt possibly d/c today after stress test. ALLOCATIONS CLERK will continue to follow. Assessment: Pt from [facility]. Plan: Pt will d/c back to [facility] when medically stable, possibly today. ALLOCATIONS CLERK will continue to follow. YUMIKO Tyson Addendum: 09/18/16 at 1506 by DAMON SHEARER Amended: Links added.
--- NOTE | 2016-09-18 17:07 | NUR ---
Chest pain P: Acute chest pain/left breast. Pt. stated 02/16 pain I: Morphine IVP administered. Pain did not resolve. Notified MD. Toradol and Lidocaine patch was ordered and administered. E: Pt. stated she has no pain.
--- NOTE | 2016-09-18 19:14 | DRSVH ---
[facility] [address] [place] [address] Echocardiogram Report Name: ROSE MARIE RUIZ Date : 09/18/2016 Height: 64 in Hospital Exam Location: [facility] Weight: 161 lb Gender: Female BSA: 1.8 m2 : 1930 Age: 85 yrs BP: 158/70 mmHg Reason For Study: CHEST PAIN Ordering Physician: HOSPITALIST [facility] Performed By: Edwin Foreman Referring Physician: Dexter Diehl Interpretation Summary Normal sinus rhythm. Pulse is 55-60 bpm. Normal LV size and mild concentric LVH. 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 There is mid-inferior, mid-inferoseptal and distal septal hypokinesis c/w prior infarction. All other segments demonstrate normal wall motion. EF is 45-50%. Normal chamber sizes. Mild MAC with trace associated mitral regurgitation. Otherwise no significant valvular abnormalities. Compared to prior study 10/14/2013 pulse is slower than before. Septum appears a little less dynamic. EF is down from 50-55% on personal review to 45-50% Procedure: A two-dimensional transthoracic echocardiogram with color flow and Doppler was performed. The study quality was technically good. Comparison is made with the echocardiogram of 10/14/13. The suprasternal notch views were difficult to obtain and are suboptimal in quality. The patient was in normal sinus rhythm during the exam. Left Ventricle: The left ventricle is normal in size. Left ventricular wall thickness is mild-moderately increased. 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 The ejection fraction is estimated to be 45-50%. Right Ventricle: The right ventricle is normal size. The right ventricular systolic function is normal. Atria: Both atria are normal in size. The interatrial septum is intact with no evidence for an atrial septal defect. Mitral Valve: The mitral valve leaflets appear mildly thickened, but open well. The mitral valve chordae are thickened and/or calcified. There is mild mitral annular calcification. There is trace mitral regurgitation. Aortic Valve: The aortic valve is trileaflet. The aortic valve is mildly calcified. The aortic valve opens well. No aortic regurgitation is present. Tricuspid Valve: The tricuspid valve is normal in structure and function. There is a trace or physiologic amount of tricuspid regurgitation. Pulmonary artery pressures cannot be estimated because of the lack of a measurable TR jet velocity. Pulmonic Valve: The pulmonic valve is normal in structure and function. There is trace pulmonic regurgitation. Great Vessels: The aortic root is normal size. The dimensions of the ascending aorta are normal. The pulmonary artery is normal size. The IVC is of normal diameter and collapses greater than 50% with a sniff. This suggests a low right atrial pressure of 3 mm Hg. Pericardium/ Pleura There is no pericardial effusion. There is no pleural effusion. MMode/2D Measurements & Calculations LVIDd: 4.9 cm LA dimension: 4.1 cm RA long axis: 4.4 cm LVOT diam LVIDs: 3.2 cm FS: 35.1 % LA A2 area: 19.5 cm RA area: 11.7 cm Ao root diam EPSS: 0.74 cm LA A4 area: 17.6 cm RA vol: 26.4 ml IVSd: 1.4 cm LA length (vol): 4.7 cm RA : 14.8 ml/m2 Aortic Jxn LVPWd: 0.93 cmLA vol: 61.3 ml asc Aorta LA vol index: 34.4 ml/m Diam: 3.5 cm IVC diam: 1.3 cm EDV(MOD-sp2) LV overton. diameter/BSA LV sys. diameter/BSA (cm/m^2): 2.8 (cm/m^2): 1.8 ESV(MOD-sp2) EF(MOD-sp2) Doppler Measurements & Calculations Ao V2 max MV E max smooth MV E/A: 0.60 PA V2 max : 105.0 cm/sec : 56.9 cm/sec Med Peak E' Smooth : 54.8 cm/sec Ao max P.4 mmHg MV A max smooth PA mean PG Ao mean P.9 mmHg : 95.7 cm/sec E/E' med: 23.0 : 0.69 mmHg LVOT Max Smooth Lat Peak E' Smooth PA Accel Time : 82.9 cm/sec : 0.14 sec E/E' lat: 20.4 EDILBERTO(I,D): 3.7 cm E/e' average sev ratio: 0.94 Pulm A Revs Dur MV A dur : 0.15 sec MV dec time: 0.26 secAo V2 mean LV V1 max PG PA V2 mean : 82.8 cm/sec : 39.6 cm/sec Ao V2 VTI: 25.1 cm LV V1 VTI PA pr(Accel) : 23.7 cm : 12.5 mmHg EDILBERTO(V,D): 3.1 cm2 EDILBERTO indexed to BSA Pulm A Revs Dur - MV A (cm^2/m^2): 2.1 Dur: -0.04 msec Reading Physician:07:13 PM
--- NOTE | 2016-09-19 00:16 | PCM.PNMED ---
Subjective Date of Service Sep 19, 2016 Subjective Patient continues to have pain generalized and in her left chest. A Lidoderm patch and Toradol were ordered which were found to be helpful. Exam Vital Signs Vital Sign - Last Date Time Temp Pulse Resp B/P Pulse Ox O2 Delivery O2 Flow Rate FiO2 09/18/16 23:47 36.7 67 18 148/78 98 Room Air Intake and Output 09/18/16 09/18/16 09/19/16 Cumulative From/Thru 15:00 23:00 07:00 09/17/16 08:40 - 09/18/16 19:10 Intake Total 338 ml 614 ml Output Total 350 ml 1300 ml Balance -12 ml -686 ml Intake Oral 338 ml 438 ml IV Total 176 ml Output Urine Total 350 ml 1300 ml Exam General: Patient is in no apparent distress. HEENT: Head is atraumatic and normocephalic. Eyes: Pupils are equally round and reactive to light and accommodation. Extraocular muscles are intact. Sclera are white, anicteric. Subconjunctival mucosa is pink. Ears and nose are unremarkable. Oropharynx: There is no mucosal lesions, there is no thrush, there is no pharyngitis. Neck: Is supple, there are no nodes, or masses or tenderness. Chest: Is clear to auscultation and percussion. There are no rales, rhonchi, wheezes or rubs. There is tenderness over the left breast and chest wall in the right upper quadrant and left upper quadrant of the breast. The left breast was examined with the 2 female nursing care attendant present. The right breast was not examined at this time. There is no erythema, there was no masses , there is no increased warmth or any other sign of infection of the left breast. There is no discharge from the nipple. Heart: Rate, rhythm is regular. There is no murmur, rub or gallop. Abdomen: Good bowel sounds are present. Abdomen is soft, nontender, no organomegaly or masses were appreciated. Extremities: Are symmetrical and well perfused. There is no edema, there is no cellulitis, no rash. Neurologic: There are no focal neurological deficits. Cranial nerves II through XII are intact. There are no sensory or motor deficits. However, the patient has very poor memory and is a very poor historian. She could not tell me where she lives and she initially could not tell me about her chest pain until I mentioned it. Once her memory was jagged however she was able to expound on the history of her chest pain etc. Psychiatric: Patients mood is calm and shows no sign of agitation. Genital: Deferred Rectal: Deferred Lab and Diagnostics Result Diagram: 09/18/1622909/18/16229 X-Rays, CTs and MRIs PROCEDURE: CT ANGIO CHEST PULMONARY EMBOLISM ([id number]) INDICATIONS: CP, dimer TECHNIQUE: After the administration of intravenous contrast, 2 mm thick sections acquired from the pulmonary apices to the posterior costophrenic angles. 3-dimensional maximum intensity projection (MIP) coronal and sagittal reformats were then acquired through the thorax. For radiation dose reduction, the following was used: automated exposure control, adjustment of mA and/or kV according to patient size. COMPARISON: [facility], CT, CHEST ANGIO-PE, 01/01/2014, 1:58. FINDINGS: Image quality: Excellent. Pulmonary arteries: Pulmonary arteries are normal in size, and demonstrate no intraluminal filling defects to suggest central pulmonary embolism. Lungs and pleura: Lungs are clear. There is mild centrilobular emphysema with apical predominance. No pleural effusions or pneumothorax. Central and peripheral airways are patent. Mediastinum: Heart size is normal, without pericardial effusion. No mediastinal or hilar adenopathy. Thoracic aorta is normal in caliber and enhancement. Scattered atheromatous calcifications are present within the aortic arch. Esophagus is normal in caliber. There is a small hiatal hernia. Bones and chest wall: No suspicious bony lesions. Ribs and thoracic spine appear intact throughout. 2 low-density expansile lesions are present within the right thyroid lobe. These were present on the study dated 01/01/14 and are similar in size. Left thyroid lobe is unremarkable. No axillary or supraclavicular adenopathy. Abdomen: Visualized upper abdominal solid organs appear normal in the early arterial phase of enhancement. IMPRESSION: 1. No acute pulmonary embolus. 2. Low-density lesions within the right thoracic lobe. If further characterization is warranted, nonemergent pelvic ultrasound may be helpful. Dictated by: Laura Licona M.D. on 09/17/2016 at 12:51 Approved by: Laura Licona M.D. on 09/17/2016 at 12:57 PROCEDURE: X-RAY CHEST ONE VIEW, PORTABLE ([id number]) INDICATIONS: CHEST PAIN TECHNIQUE: One view of the chest was acquired. COMPARISON: [facility], CR, CHEST 1VW (PORTABLE), 12/31/2013, 23: 52. [facility], CT, CHEST ANGIO-PE, 10/15/2013, 0:03. [facility], CR, CHEST 1VW (PORTABLE), 10/13/2013, 11:59. FINDINGS: Surgical changes and devices: None. Lungs and pleura: The aeration of the lungs is similar to the previous exam. There is no focal consolidation, effusion, or pneumothorax. No overt heart failure is evident. Mediastinum: Mediastinal contours appear normal. Heart size is normal. There is prominent aortic atherosclerosis. Bones and chest wall: No suspicious bony lesions. Overlying soft tissues appear unremarkable. IMPRESSION: Stable chest. No acute cardiopulmonary process is evident. Dictated by: Richie Goncalves M.D. on 09/17/2016 at 8:18 Approved by: Richie Goncalves M.D. on 09/17/2016 at 8:19 Cardiac Echo Impressions Echocardiogram Report Name: ROSE MARIE RUIZ Date : 09/18/2016 Height: 64 in Hospital Exam Location: [facility] Weight: 161 lb Gender: Female BSA: 1.8 m2 : 1930 Age: 85 yrs BP: 158/70 mmHg Reason For Study: CHEST PAIN Ordering Physician: HOSPITALIST [facility] Performed By: Edwin Foreman Referring Physician: Dexter Diehl Interpretation Summary Normal sinus rhythm. Pulse is 55-60 bpm. Normal LV size and mild concentric LVH. 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 There is mid-inferior, mid-inferoseptal and distal septal hypokinesis c/w prior infarction. All other segments demonstrate normal wall motion. EF is 45-50%. Normal chamber sizes. Mild MAC with trace associated mitral regurgitation. Otherwise no significant valvular abnormalities. Compared to prior study 10/14/2013 pulse is slower than before. Septum appears a little less dynamic. EF is down from 50-55% on personal review to 45-50% Assessment & Plan The patient is an 85-year-old white female with dementia, coronary disease, hypertension, COPD and diabetes who was unable to tell me where she lives due to her dementia and poor memory. She according to the records lives at [facility] and she began complaining of what she initially told me was leg cramps. She had forgotten Kellee Mendez about the chest pain. I asked her about the chest pain she then described that she had severe chest pain this morning that made her want to "scream". According to the records the patient began complaining to the staff at [facility] of intermittent moderate chest pain/ pressure with an onset around 8 AM. The pain radiated to her left arm at the time. So should his symptoms included shortness of breath, left knee pain, chest pain with movement. Patient denied diaphoresis, nausea, lower extremity swelling. The patient reported that she went to get up and this morning and had instant pain in her left chest radiating to her left breast. Pain was exacerbated by movement. The patient reported to me that she fell a couple of days prior to admission. She then stated 4 days prior to admission. She then after that stated a week prior to admission. And according to the medical record in the ER doctor's note she stated that she fell a couple weeks prior to admission. She stated that she tripped on a seen on the concrete sidewalk outside of the [facility] manner. She said when she fell she landed on her hands with the palms down to prevent her from hitting her face and her right knee she states that the staff at [facility] has been putting ice on her right knee is starting to feel better. Today she woke up with chest pain which along this episode lasted for approximately 15 minutes. She denied any previous chest pain with movement following the fall denies any head injury following a fall. Patient was evaluated in the emergency room by Dr. Quincy Harley. The patient was found to have a slightly elevated white blood cell count of 11.9 her CBC was otherwise unremarkable. Troponin was drawn which was less than 0.010 and a magnesium level was found to be low at 1.6 there are no acute findings evident on EKG which showed normal sinus rhythm with a rate of 62, there was left ventricular hypertrophy, there is evidence of previous inferior and anterior infarct, overall however the EKG was unchanged compared with 2010 a d-dimer was performed which was found to be marginally elevated the CT Michael Johann was obtained and this was negative for pulmonary embolism. The patient received aspirin and Nitropaste. Given her elevated HEART score the patient was brought in under observation to the hospital service for further evaluation and treatment. # Chest pain - Patient does have a history of coronary disease and myocardial infarction so certainly could be due to acute coronary syndrome - However, due to the description of the pain being in her left breast and the tenderness in the upper right and left quadrants of her left breast and chest wall suspect this is atypical chest pain related to musculoskeletal injury due to her recent fall on cement. - We have trended troponins and they are negative. - We will control pain with analgesics beginning with Tylenol. We started Toradol and this is given the patient some relief. Along with a Lidoderm patch. - We will consider nuclear stress testing due to the history of coronary artery disease and prior myocardial infarction. Patient was seen in consultation by Dr. Phillips today and he agrees with the need for a stress test in a.m. # Type II diabetes mellitus - We will check blood sugars before meals and at bedtime - We will provide sliding scale subcutaneous insulin coverage - Continue home insulin regimen # Hypertension - Stable at present time - Continue home medications with amlodipine and propranolol. - We will monitor closely # Hyperlipidemia - We will continue Crestor # Chronic obstructive pulmonary disease - Continue close observation # Chronic kidney disease stage 3 - We will try to avoid nephrotoxic agents. - Monitor renal function closely. Disposition: Patient is to have a stress test in a.m. Pain Evaluation: Adequate Pain Control GI Prophylaxis: Proton Pump Inhibitor VTE Prophylaxis: Sub-Q Enoxaparin Resuscitation Status: CPR: Attempt Resuscitation Keny Burrell MD Sep 19, 2016 00:16
--- NOTE | 2016-09-19 00:49 | CONS ---
[address] [address] CONSULTATION REPORT PATIENT: ROSE MARIE RUIZ : 1930 MR#: [id number] ADMIT: 09/17/2016 JOB ID: [id number] DATE OF SERVICE: 09/18/2016 CARDIOLOGY CONSULTATION NOTE-INITIAL INPATIENT EVALUATION: CARDIAC CONSULTING PHYSICIAN: Homar Phillips MD PROBLEMS: 1. Chest pain. a. Admitted 30 hours ago with severe musculoskeletal chest wall pain after a fall some days ago; resolved with Toradol and lidocaine patch. b. Question of associated ischemic coronary ischemic pain, doubtful; but not excluded. c. Consider ACS, ECG unchanged; troponin and serial troponin not elevated. 2. Coronary artery disease (CAD): a. History of myocardial infarction, details not available; probably in [place] in 2003; and history of catheterization with and without intervention. b. Admission for chest pain in 2010, troponin negative. c. Catheterization July 27, 2010, note three-vessel CAD with 40% distal left main. d. Coronary angiogram August 06, 2010, two-vessel coronary disease including 40% distal left main; 40% mid LAD; 60% to 70% proximal CX; and occluded proximal RCA with [id number] collaterals; and LVG with ejection fraction 60% including wall motion abnormalities of prior inferoposterior OR. e. Myocardial perfusion scan July 13, 2010, abnormal with large prior myocardial infarction of anteroseptal and apical regions with mild partha-infarct ischemia; and also inferior defect with moderate reperfusion consistent with interpreted as prior myocardial infarction but significant reversible myocardial ischemia; and borderline reduced ejection fraction. Borderline reduced ejection fraction with EF 54%. OTHER PROBLEMS: 1. Cognitive decline, moderate. 2. Chronic renal insufficiency. Creatinine 0.79; but creatinine has chronically been as high as 1.4-1.5. CHIEF COMPLAINT: 1. Chest pain. 2. Consideration of no ischemic evaluation versus perfusion scan versus catheterization. HISTORY OF PRESENT ILLNESS: I am glad to meet this 85-year-old woman who was admitted to the hospital yesterday morning from her assisted home after presenting when she awoke with severe chest pain. The hospitalist team request Cardiology consultation regarding workup in the setting of her known prior coronary disease, as well as a question whether there may have been a cardiac component to her current chest pain or clinical event. The patient has baseline dementia that is moderate. There has been some question about reliability of her answers and changing answers. She was able to talk with me reasonably well and give me reasonable answers regarding her subjective symptoms. No family is present; and there may have been no family present; and she has a daughter in [place]. The patient had a fall in the past several days to several weeks. The time is difficult to determine exactly. She describes that she tripped on concrete, fell forward with her hands out to protect her, and bloodied her face and hit her left chest where her current discomfort is. She does not believe she lost consciousness during the event. She has no history of arrhythmia and no current symptoms of arrhythmia otherwise such as tachy palpitations, presyncope, or syncope. Otherwise, the patient tells me she does not have ischemic symptoms . She tells me at the [facility] home she walks up a flight of stairs to the second floor without difficulty. She goes to the library. She apparently does not use a walker normally with those activities. She does not report limitation by chest discomfort or dyspnea. She does not have other symptoms of heart failure such as nocturnal dyspnea or edema. CARDIAC HISTORY: I reviewed her [employer] chart. She has a history of having a heart attack, of which the details are not clear. It probably occurred in 2003 and she had catheterization in [place] and no intervention. Her next clinical cardiac event was in 2010 when she was admitted with chest discomfort. She had a myocardial perfusion scan showing anterior and inferior infarcts, as well as moderate inferior ischemia and small partha-infarct and limited anterior partha-infarct ischemia. She was treated medically and has done well in the interim. Regarding other possible underlying vascular disease, she tells me she has no history of CVA or current symptoms of TIA. No claudication. ALLERGIES: The record indicates: 1. BARBITURATES. 2. PENICILLIN. 3. LATEX. 4. METFORMIN. 5. METRONIDAZOLE. 6. PRIMIDONE. 7. SIMVASTATIN. 8. TRAZODONE. 9. ADHESIVE TAPE. MEDICATIONS: The patient is unable to tell me her medications. Recorded medications include: 1. ASA 325 mg daily. 2. Amlodipine 10 mg daily. 3. Cholecalciferol 2000 units daily. 4. Citalopram 20 mg daily. 5. Insulin Levemir q.a.m. and h.s. 6. Insulin lispro units subcu q.a.m. 7. Insulin lispro q.a.c. 8. Isosorbide mononitrate ER 60 mg t.i.d. 9. Propranolol ER 160 mg daily. 10. Rosuvastatin 10 mg daily. PAST MEDICAL HISTORY: CAD RISK FACTORS: 1. History of hypertension. 2. History of diabetes type 2. 3. History of hyperlipidemia. 4. Cigarettes, current smoker 3-5 cigarettes a day. 5. No family history of premature coronary disease. 6. History of COPD without further details. 7. History of gout. CARDIAC REVIEW OF SYSTEMS: I questioned her about a 13 point review of systems which is unremarkable, noncontributory or negative except as noted including: She denies headache. She denies history of thyroid disorder. She denies history of GI disease, including indigestion, ulcer, hepatitis or jaundice. PERSONAL AND SOCIAL HISTORY: Cigarettes, she has smoked about a half pack a day over the years. Alcohol, no significant alcohol use is reported. FAMILY HISTORY: No family history of premature coronary artery disease. PHYSICAL EXAMINATION: Vital signs: Blood pressure 106/52 with a heart rate 68 and regular. Respiratory rate 18 and unlabored. Pulse oximeter 96% on room air. Afebrile 36.6. Weight 73 kg. General appearance: Pleasant, somewhat unkempt woman who is alert and friendly, and appears with mild to moderate cognitive decline. Neurologic and mental status: No overt focal neurologic defect noted. She is alert and appears appropriate and conversant. HEENT: PERRL. Conjunctivae pink. Sclerae not icteric. Mouth and mucous membranes intact. Neck: Carotid upstroke intact bilaterally without bruit. Jugular venous pressure unremarkable examined sitting upright. No palpable thyromegaly. No palpable cervical lymphadenopathy. Lungs: Clear to auscultation bilaterally. Heart: There is moderate to severe focal chest wall tenderness over the left lateral chest, which she says reproduces her discomfort, and is much better since the local treatment with lidocaine patch and also with Toradol IV. Heart examination otherwise notable for distant heart sounds. No loud murmur. Regular rhythm. Abdomen: Obese, but otherwise unremarkable examination without tenderness, mass, hepatosplenomegaly. Examined sitting. Extremities: No edema. Some muscle wasting noted. Pedal pulses difficult to feel bilaterally. DIAGNOSTIC STUDIES: Electrocardiogram: ECG shows a sinus rhythm at 62 BPM with left atrial enlargement and anterior Q-waves V1 to V5 consistent with extensive anterior myocardial infarction. There is also deep Q-waves in L3 and aVF with small Q-wave L2 consistent with prior inferior myocardial infarction. Otherwise, nonspecific ST-T wave changes without otherwise acute ST-T changes suggestive of overt ischemia. Chest x-ray: The chest x-ray film is overall unremarkable with generous lung volumes but no overt COPD. There is mild cardiomegaly and borderline pulmonary venous hypertension. LABORATORY: CBC includes WBC 11,900 on admission with hemoglobin 13.9, hematocrit 41.4, normal indices, and platelet count 270,000. D-dimer elevated at 0.89. Chemistries include sodium 140, potassium 3.9, BUN 21, creatinine 0.73, glucose 242, with HbA1c markedly elevated 10.3; magnesium 1.6. Liver function tests unremarkable. Cardiac markers include troponin not elevated less than 0.010 measured four times. Echocardiogram: I reviewed the current echocardiogram images and note: Normal left ventricular size with mild to moderate basal septal thickening. There is mild LV dysfunction with diminished global LV ejection fraction about 40% to 45%. Wall motion defects include anteroapical hypokinesis and inferior akinesis. No significant valvular heart disease, including mild MR and aortic valve opens well. 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 Over the past day the clinical impression is that she has clear musculoskeletal chest wall discomfort that is her primary problem and has responded to focused treatment. She is comfortable now. Because of her chest discomfort and underlying coronary disease, the question arose to reassess for possible active coronary disease. The clinical impression is very strongly in favor of a musculoskeletal problem. However, especially because of her dementia, coronary ischemia is not excluded. She is clinically stable otherwise. The remainder the evaluation is reassuring in terms of her known chronic stable coronary disease, in as much as her ECG is unchanged and her troponin is repeatedly not elevated. I agree with your impression for caution to reassess clinically. Myocardial perfusion scan would be helpful as a first step for risk stratification in this lady who appears clinically stable as far as her coronary disease; and has several reasons to take a conservative approach, including her chronic kidney disease and her dementia. RECOMMENDATIONS: 1. Pharmacologic myocardial perfusion scan. 2. Please reassess with Cardiology after MPS. 3. OMT, optimal guideline directed treatment for her chronic coronary disease, including aspirin (dose of 325 daily could be decreased to 81 mg daily); statin, beta-bayron (I noted she was on propranolol; and might reassess that); and agree with her long-acting nitroglycerin, Imdur. Might consider KISHORE inhibitor in the setting of her diabetes and chronic kidney disease.
[2016-09-19] MEDS: Ketorolac 15 mg/mL Inj IVPUSH PRN ×2 (02:13→09:35)
--- NOTE | 2016-09-19 02:48 | NUR ---
PAIN Approx 1 hr after lidocaine patch removed, pt awoke, c/o left chest/breast pain. Pt rubbing left chest and axilla. When asked to rate pain w/ number, pt states, "It comes and goes." Pain is more intense w/ movement. PRN IV toradol administered. When pain reassessed, pt observed to be sleeping, appears comfortable. Continue to monitor. Call light in reach. Bed alarm on. Intentional rounding.
[2016-09-19 04:10] VITALS: BP 160/75; PULSE 59; RESP 18; O2SAT 95
[2016-09-19 05:50] VITALS: PULSE 61
[2016-09-19 06:02] LABS: BASOPHILS % (AUTO) 0.2 % (0-3); EOSINOPHILS % (AUTO) 1.3 % (0-5); MONOCYTES % (AUTO) 5.8 % (4-12); Mean Corpuscular Hemoglobin 28.2 pg (27.0-35.0); Mean Corpuscular Volume 85.6 fL (81-100); NEUTROPHILS % (AUTO) 67.5 % (40-74); Platelet Count 250 bil/L (150-400)
[2016-09-19] MEDS: Insulin LISPRO Medium-Dose Scale SUBQ SCH ×4 (07:57→21:03)
[2016-09-19 08:00] VITALS: PULSE 63
[2016-09-19] MEDS: Pantoprazole 40 mg ER24 Tablet PO SCH (08:12)
[2016-09-19] MEDS: Insulin GLARgine 100 Unit/mL Syringe SUBQ SCH ×2 (08:13→21:02)
[2016-09-19] MEDS: Isosorbide Mononitrate 60 mg ER24 Tablet PO SCH (10:02)
[2016-09-19 10:08] VITALS: BP 143/81; PULSE 68; RESP 19; O2SAT 96
[2016-09-19] MEDS: Propranolol LA 80 mg ER24 Capsule PO SCH (10:15)
--- NOTE | 2016-09-19 11:41 | NUR ---
Case Management: Attempted to deliver JOSE; pt. is demented. Per [facility] [phone]; pt. does not have a DPOA. Data Scientistchasity Meehan [phone] is working on DPOA. Margot Valdivia RN
[2016-09-19] MEDS: Lidocaine Topical 5% Patch TOPICAL SCH (13:00)
--- NOTE | 2016-09-19 15:00 | NUR ---
Faxed clinicals to [place] per [facility]
[2016-09-19 17:12] VITALS: BP 123/72; PULSE 52; RESP 18; O2SAT 95
--- NOTE | 2016-09-19 17:51 | DRSVH ---
PROCEDURE: 1 DAY PHARMACOLOGICAL STRESS TEST Rest and pharmacological stress myocardial perfusion SPECT with gated imaging and ejection fraction RADIOPHARMACEUTICAL: 8.9 mCi Tc-99m tetrafosmin IV at rest and 25.1 mCi Tc-99m tetrafosmin IV at pea k effect of pharmacological stress. A umx-utm-ovftfcok was performed. INDICATIONS: CHEST PAIN WITH HISTORY OF NM TECHNIQUE: Radiopharmaceutical was injected at peak stress test, and also at rest. SPECT images wer e obtained. SPECT myocardial perfusion images were displayed in short axis, horizontal long axis, an d vertical long axis views. Gated images were reviewed using [employer] software. COMPARISON: None. CARDIAC STRESS: A pharmacologic stress test was performed under the supervision of an attending staff, using an infus ion of lexiscan . Hemodynamic data: There is normal blood pressure and heart rate response to pharmacologic stress. Symptoms: The patient denied anginal chest pain. Aminophylline: none EKG: No diagnostic changes of ischemia; no ectopy. FINDINGS: Raw data: There is good myocardial uptake of radiotracer. No significant motion artifacts. Left ventricle function: Gated images demonstrate hypokinesis of the inferior wall Left ventricle r esting end diastolic volume is 72 mL. Left ventricle stress ejection fraction is 43% (although visua lly this appears somewhat better) ; normal range is above 45%. Myocardial perfusion: There is a moderate size area of moderately decreased uptake affecting the inf erior/inferoseptal wall that shows no significant improvement on the rest images. No other imaging d efects appreciated. IMPRESSION: 1. Appropriate hemodynamic response to pharmacologic stress. 2. No chest pain or diagnostic ECG changes with stress. 3. Scintigraphic evidence for a myocardial infarction affecting the inferior wall without significant periinfarct ischemia appreciated. 4. Normal left ventricular size with low normal to mildly reduced systolic function. Dictated by: Eduarda Correa M.D. on 09/19/2016 at 17:40 Approved by: Edaurda Correa M.D. on 09/19/2016 at 17:49
[2016-09-19 22:39] VITALS: BP 148/66; PULSE 68; RESP 18; O2SAT 96
--- NOTE | 2016-09-20 00:12 | PCM.PNMED ---
Subjective Date of Service Sep 20, 2016 Subjective Patient has no new complaints. She remains in good spirits. She was seen after her stress test was complete. She ate her entire dinner. Her chest pain is feeling a little bit better. Exam Vital Signs Vital Sign - Last Date Time Temp Pulse Resp B/P Pulse Ox O2 Delivery O2 Flow Rate FiO2 09/19/16 22:39 36.7 68 18 148/66 96 Room Air Intake and Output 09/19/16 09/19/16 09/20/16 Cumulative From/Thru 15:00 23:00 07:00 09/17/16 08:40 - 09/19/16 19:01 Intake Total 800 ml 1464 ml Output Total 500 ml 2250 ml Balance 300 ml -786 ml Intake Oral 800 ml 1288 ml IV Total 176 ml Output Urine Total 500 ml 2250 ml Exam General: Patient is in no apparent distress. HEENT: Head is atraumatic and normocephalic. Eyes: Pupils are equally round and reactive to light and accommodation. Extraocular muscles are intact. Sclera are white, anicteric. Subconjunctival mucosa is pink. Ears and nose are unremarkable. Oropharynx: There is no mucosal lesions, there is no thrush, there is no pharyngitis. Neck: Is supple, there are no nodes, or masses or tenderness. Chest: Is clear to auscultation and percussion. There are no rales, rhonchi, wheezes or rubs. There is tenderness over the left breast and chest wall in the right upper quadrant and left upper quadrant of the breast. This tenderness has decreased slightly. Heart: Rate, rhythm is regular. There is no murmur, rub or gallop. Abdomen: Good bowel sounds are present. Abdomen is soft, nontender, no organomegaly or masses were appreciated. Extremities: Are symmetrical and well perfused. There is no edema, there is no cellulitis, no rash. Neurologic: There are no focal neurological deficits. Cranial nerves II through XII are intact. There are no sensory or motor deficits. However, the patient has very poor memory and is a very poor historian. She could not tell me where she lives and she initially could not tell me about her chest pain until I mentioned it. Once her memory was jagged however she was able to expound on the history of her chest pain etc. Psychiatric: Patients mood is calm and shows no sign of agitation. Genital: Deferred Rectal: Deferred Lab and Diagnostics Result Diagram: 09/19/1652409/19/16524 X-Rays, CTs and MRIs PROCEDURE: CT ANGIO CHEST PULMONARY EMBOLISM ([id number]) INDICATIONS: CP, dimer TECHNIQUE: After the administration of intravenous contrast, 2 mm thick sections acquired from the pulmonary apices to the posterior costophrenic angles. 3-dimensional maximum intensity projection (MIP) coronal and sagittal reformats were then acquired through the thorax. For radiation dose reduction, the following was used: automated exposure control, adjustment of mA and/or kV according to patient size. COMPARISON: [facility], CT, CHEST ANGIO-PE, 01/01/2014, 1:58. FINDINGS: Image quality: Excellent. Pulmonary arteries: Pulmonary arteries are normal in size, and demonstrate no intraluminal filling defects to suggest central pulmonary embolism. Lungs and pleura: Lungs are clear. There is mild centrilobular emphysema with apical predominance. No pleural effusions or pneumothorax. Central and peripheral airways are patent. Mediastinum: Heart size is normal, without pericardial effusion. No mediastinal or hilar adenopathy. Thoracic aorta is normal in caliber and enhancement. Scattered atheromatous calcifications are present within the aortic arch. Esophagus is normal in caliber. There is a small hiatal hernia. Bones and chest wall: No suspicious bony lesions. Ribs and thoracic spine appear intact throughout. 2 low-density expansile lesions are present within the right thyroid lobe. These were present on the study dated 01/01/14 and are similar in size. Left thyroid lobe is unremarkable. No axillary or supraclavicular adenopathy. Abdomen: Visualized upper abdominal solid organs appear normal in the early arterial phase of enhancement. IMPRESSION: 1. No acute pulmonary embolus. 2. Low-density lesions within the right thoracic lobe. If further characterization is warranted, nonemergent pelvic ultrasound may be helpful. Dictated by: Laura Licona M.D. on 09/17/2016 at 12:51 Approved by: Laura Licona M.D. on 09/17/2016 at 12:57 PROCEDURE: X-RAY CHEST ONE VIEW, PORTABLE ([id number]) INDICATIONS: CHEST PAIN TECHNIQUE: One view of the chest was acquired. COMPARISON: [facility], CR, CHEST 1VW (PORTABLE), 12/31/2013, 23: 52. [facility], CT, CHEST ANGIO-PE, 10/15/2013, 0:03. [facility], CR, CHEST 1VW (PORTABLE), 10/13/2013, 11:59. FINDINGS: Surgical changes and devices: None. Lungs and pleura: The aeration of the lungs is similar to the previous exam. There is no focal consolidation, effusion, or pneumothorax. No overt heart failure is evident. Mediastinum: Mediastinal contours appear normal. Heart size is normal. There is prominent aortic atherosclerosis. Bones and chest wall: No suspicious bony lesions. Overlying soft tissues appear unremarkable. IMPRESSION: Stable chest. No acute cardiopulmonary process is evident. Dictated by: Richie Goncalves M.D. on 09/17/2016 at 8:18 Approved by: Richie Goncalves M.D. on 09/17/2016 at 8:19 Cardiac Echo Impressions Echocardiogram Report Name: ROSE MARIE RUIZ Date : 09/18/2016 Height: 64 in Hospital Exam Location: [facility] Weight: 161 lb Gender: Female BSA: 1.8 m2 : 1930 Age: 85 yrs BP: 158/70 mmHg Reason For Study: CHEST PAIN Ordering Physician: HOSPITALIST [facility] Performed By: Edwin Foreman Referring Physician: Dexter Diehl Interpretation Summary Normal sinus rhythm. Pulse is 55-60 bpm. Normal LV size and mild concentric LVH. 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 There is mid-inferior, mid-inferoseptal and distal septal hypokinesis c/w prior infarction. All other segments demonstrate normal wall motion. EF is 45-50%. Normal chamber sizes. Mild MAC with trace associated mitral regurgitation. Otherwise no significant valvular abnormalities. Compared to prior study 10/14/2013 pulse is slower than before. Septum appears a little less dynamic. EF is down from 50-55% on personal review to 45-50% Assessment & Plan The patient is an 85-year-old white female with dementia, coronary disease, hypertension, COPD and diabetes who was unable to tell me where she lives due to her dementia and poor memory. She according to the records lives at [facility] and she began complaining of what she initially told me was leg cramps. She had forgotten Kellee Mendez about the chest pain. I asked her about the chest pain she then described that she had severe chest pain this morning that made her want to "scream". According to the records the patient began complaining to the staff at [facility] of intermittent moderate chest pain/ pressure with an onset around 8 AM. The pain radiated to her left arm at the time. So should his symptoms included shortness of breath, left knee pain, chest pain with movement. Patient denied diaphoresis, nausea, lower extremity swelling. The patient reported that she went to get up and this morning and had instant pain in her left chest radiating to her left breast. Pain was exacerbated by movement. The patient reported to me that she fell a couple of days prior to admission. She then stated 4 days prior to admission. She then after that stated a week prior to admission. And according to the medical record in the ER doctor's note she stated that she fell a couple weeks prior to admission. She stated that she tripped on a seen on the concrete sidewalk outside of the [facility] manner. She said when she fell she landed on her hands with the palms down to prevent her from hitting her face and her right knee she states that the staff at [facility] has been putting ice on her right knee is starting to feel better. Today she woke up with chest pain which along this episode lasted for approximately 15 minutes. She denied any previous chest pain with movement following the fall denies any head injury following a fall. Patient was evaluated in the emergency room by Dr. Quincy Harley. The patient was found to have a slightly elevated white blood cell count of 11.9 her CBC was otherwise unremarkable. Troponin was drawn which was less than 0.010 and a magnesium level was found to be low at 1.6 there are no acute findings evident on EKG which showed normal sinus rhythm with a rate of 62, there was left ventricular hypertrophy, there is evidence of previous inferior and anterior infarct, overall however the EKG was unchanged compared with 2010 a d-dimer was performed which was found to be marginally elevated the CT Michael Wills was obtained and this was negative for pulmonary embolism. The patient received aspirin and Nitropaste. Given her elevated HEART score the patient was brought in under observation to the hospital service for further evaluation and treatment. # Chest pain - Patient does have a history of coronary disease and myocardial infarction so certainly could be due to acute coronary syndrome - However, due to the description of the pain being in her left breast and the tenderness in the upper right and left quadrants of her left breast and chest wall suspect this is atypical chest pain related to musculoskeletal injury due to her recent fall on cement. - We have trended troponins and they are negative. - We will control pain with analgesics beginning with Tylenol. We started Toradol and this is given the patient some relief. Along with a Lidoderm patch. - The patient had nuclear stress testing completed today due to the history of coronary artery disease and prior myocardial infarction. Patient was seen in consultation by Dr. Phillips and he has reviewed the patient's stress test and believes that the patient will be treated medically. # Type II diabetes mellitus - We will check blood sugars before meals and at bedtime - We will provide sliding scale subcutaneous insulin coverage - Continue home insulin regimen # Hypertension - Stable at present time - Continue home medications with amlodipine and propranolol. - We will monitor closely # Hyperlipidemia - We will continue Crestor # Chronic obstructive pulmonary disease - Continue close observation # Chronic kidney disease stage 3 - We will try to avoid nephrotoxic agents. - Monitor renal function closely. Disposition: Patient will likely be discharged back to [facility] assisted living home tomorrow if accepted. Pain Evaluation: Adequate Pain Control GI Prophylaxis: Proton Pump Inhibitor VTE Prophylaxis: Sub-Q Enoxaparin Resuscitation Status: CPR: Attempt Resuscitation Keny Burrell MD Sep 20, 2016 00:12
[2016-09-20 01:57] VITALS: BP 159/77; PULSE 64; RESP 18; O2SAT 95
[2016-09-20] MEDS: Ketorolac 15 mg/mL Inj IVPUSH PRN (02:03)
[2016-09-20 03:47] VITALS: PULSE 62
[2016-09-20 06:02] LABS: BASOPHILS % (AUTO) 0.1 % (0-3); EOSINOPHILS % (AUTO) 1.2 % (0-5); MONOCYTES % (AUTO) 6.2 % (4-12); Mean Corpuscular Volume 85.6 fL (81-100); NEUTROPHILS % (AUTO) 67.4 % (40-74); Platelet Count 229 bil/L (150-400)
[2016-09-20 06:19] LABS: Magnesium 1.9 mg/dL (1.6-2.6)
[2016-09-20 07:13] VITALS: BP 179/75; PULSE 64; RESP 18; O2SAT 96
--- NOTE | 2016-09-20 07:16 | NUR ---
Pain Pt reporting pain to back this shift, stating "sometimes it's severe." Medicated pt with toradol. No further c/o of pain this shift. Call light within reach, frequent rounding, bed alarm for safety.
[2016-09-20] MEDS: Pantoprazole 40 mg ER24 Tablet PO SCH ×2 (07:30→08:37)
[2016-09-20 08:00] VITALS: PULSE 72
[2016-09-20] MEDS: Insulin LISPRO Medium-Dose Scale SUBQ SCH ×4 (08:00→13:54)
[2016-09-20] MEDS: Propranolol LA 80 mg ER24 Capsule PO SCH ×2 (08:30→08:36)
[2016-09-20] MEDS: Insulin GLARgine 100 Unit/mL Syringe SUBQ SCH ×2 (08:30→08:38)
[2016-09-20] MEDS: Isosorbide Mononitrate 60 mg ER24 Tablet PO SCH ×2 (08:30→08:37)
--- NOTE | 2016-09-20 11:09 | NUR ---
Refused Meds Pt refused all meds x 2, wouldn't explain why. Pt worried about finding purse and shoes, of which pt didn't arrive with, reminded pt that purse is mostly in drawer at home per [facility]. Will continue to monitor.
[2016-09-20 13:10] VITALS: BP 157/81; PULSE 69; RESP 17; O2SAT 96
[2016-09-20] MEDS: Lidocaine Topical 5% Patch TOPICAL SCH (13:57)
--- NOTE | 2016-09-20 14:24 | NUR ---
Faxed clinicals to [facility] [phone] ATTN: Kirstin per [employer]
--- NOTE | 2016-09-20 14:53 | PCM.DIMED ---
Discharge Instructions Date of Service Sep 20, 2016 Dates of Hospitalization Sep 17, 2016 at 16:27 Discharge Diagnosis Discharge Diagnosis Atypical Chest Pain Test Results PROCEDURE: 1 DAY PHARMACOLOGICAL STRESS TEST Rest and pharmacological stress myocardial perfusion SPECT with gated imaging and ejection fraction RADIOPHARMACEUTICAL: 8.9 mCi Tc-99m tetrafosmin IV at rest and 25.1 mCi Tc-99m tetrafosmin IV at peak effect of pharmacological stress. A xcy-ann-cgzarucu was performed. INDICATIONS: CHEST PAIN WITH HISTORY OF IN TECHNIQUE: Radiopharmaceutical was injected at peak stress test, and also at rest. SPECT images were obtained. SPECT myocardial perfusion images were displayed in short axis, horizontal long axis, and vertical long axis views. Gated images were reviewed using [employer] software. COMPARISON: None. CARDIAC STRESS: A pharmacologic stress test was performed under the supervision of an attending staff, using an infusion of lexiscan . Hemodynamic data: There is normal blood pressure and heart rate response to pharmacologic stress. Symptoms: The patient denied anginal chest pain. Aminophylline: none EKG: No diagnostic changes of ischemia; no ectopy. FINDINGS: Raw data: There is good myocardial uptake of radiotracer. No significant motion artifacts. Left ventricle function: Gated images demonstrate hypokinesis of the inferior wall Left ventricle resting end diastolic volume is 72 mL. Left ventricle stress ejection fraction is 43% (although visually this appears somewhat better ) ; normal range is above 45%. Myocardial perfusion: There is a moderate size area of moderately decreased uptake affecting the inferior/inferoseptal wall that shows no significant improvement on the rest images. No other imaging defects appreciated. IMPRESSION: 1. Appropriate hemodynamic response to pharmacologic stress. 2. No chest pain or diagnostic ECG changes with stress. 3. Scintigraphic evidence for a myocardial infarction affecting the inferior wall without significant periinfarct ischemia appreciated. 4. Normal left ventricular size with low normal to mildly reduced systolic function. Dictated by: Eduarda Correa M.D. on 09/19/2016 at 17:40 Approved by: Eduarda Correa M.D. on 09/19/2016 at 17:49 Diet Heart Healthy Activity No restrictions (The patient may resume usual activities gradually as tolerated. ) Call your provider Fever or Chills, Shortness of breath, Bleeding, Chest pain, Vomitting, Excessive diarrhea, Weakness (unilateral) Patient Instructions Follow-up Provider: Dexter Diehl MD Follow-up with PCP in: 1 week Keny Burrell MD Sep 20, 2016 14:53
[2016-09-20] MEDS ORDERED: LIDO700A6 TOPICAL (14:56)
--- NOTE | 2016-09-20 16:00 | NUR ---
Social Work: Discharge Data: Pt is on day 3 of hospitalization. EMR reviewed. D/C orders are in. DISPUTE SPECIALIST referred pt to [facility], access given, F2F signed, notified she is discharging. DISPUTE SPECIALIST spoke with [facility] who states they cannot transport pt. Pt has dementia and does not handle her own money, they are working on getting her a financial POA. DISPUTE SPECIALIST explained situation to DISPUTE SPECIALIST film processing shift supervisor who gave permission for hospital to pay for cabulance transportation home for pt. [facility] DISPUTE SPECIALIST notified [facility] pt will d/c via cabulance, leaving at 4:30pm. No further d/c planning needs at this time. DISPUTE SPECIALIST will continue to follow if needs arise. Assessment: Pt form LINDA. Plan: Pt will d/c to [facility] via cabulance at 4:30pm with [facility], PT/OT. No further d/c planning needs at this time. DISPUTE SPECIALIST will continue to follow if needs arise. YUMIKO Tyson
--- NOTE | 2016-09-20 16:23 | NUR ---
Discharge Pt discharged home to [facility], report was given to DAYLIN Ferrera and Lindsay(Admin). RN verbalized understanding of discharge, new Rx, and follow up instructions. Pt left with personal belongings (shirt, pants, bra, and socks only).
--- NOTE | 2016-09-21 01:01 | PCM.DC.MED ---
Discharge Summary Date of Service Sep 20, 2016 Dates of Hospitalization Date of Hospital Admission Sep 17, 2016 at 16:27 Date of Discharge: Sep 20, 2016 Providers: Admitting Physician: Keny Burrell MD Primary Care Physician: Dexter Diehl MD Attending Physician: Keny Burrell MD Diagnosis at Time of Discharge Diagnosis at Time of Discharge Atypical Chest Pain Procedures XRay, CTs & MRIs PROCEDURE: CT ANGIO CHEST PULMONARY EMBOLISM ([id number]) INDICATIONS: CP, dimer TECHNIQUE: After the administration of intravenous contrast, 2 mm thick sections acquired from the pulmonary apices to the posterior costophrenic angles. 3-dimensional maximum intensity projection (MIP) coronal and sagittal reformats were then acquired through the thorax. For radiation dose reduction, the following was used: automated exposure control, adjustment of mA and/or kV according to patient size. COMPARISON: [facility], CT, CHEST ANGIO-PE, 01/01/2014, 1:58. FINDINGS: Image quality: Excellent. Pulmonary arteries: Pulmonary arteries are normal in size, and demonstrate no intraluminal filling defects to suggest central pulmonary embolism. Lungs and pleura: Lungs are clear. There is mild centrilobular emphysema with apical predominance. No pleural effusions or pneumothorax. Central and peripheral airways are patent. Mediastinum: Heart size is normal, without pericardial effusion. No mediastinal or hilar adenopathy. Thoracic aorta is normal in caliber and enhancement. Scattered atheromatous calcifications are present within the aortic arch. Esophagus is normal in caliber. There is a small hiatal hernia. Bones and chest wall: No suspicious bony lesions. Ribs and thoracic spine appear intact throughout. 2 low-density expansile lesions are present within the right thyroid lobe. These were present on the study dated 01/01/14 and are similar in size. Left thyroid lobe is unremarkable. No axillary or supraclavicular adenopathy. Abdomen: Visualized upper abdominal solid organs appear normal in the early arterial phase of enhancement. IMPRESSION: 1. No acute pulmonary embolus. 2. Low-density lesions within the right thoracic lobe. If further characterization is warranted, nonemergent pelvic ultrasound may be helpful. Dictated by: Laura Licona M.D. on 09/17/2016 at 12:51 Approved by: Laura Licona M.D. on 09/17/2016 at 12:57 PROCEDURE: X-RAY CHEST ONE VIEW, PORTABLE ([id number]) INDICATIONS: CHEST PAIN TECHNIQUE: One view of the chest was acquired. COMPARISON: [facility], CR, CHEST 1VW (PORTABLE), 12/31/2013, 23: 52. [facility], CT, CHEST ANGIO-PE, 10/15/2013, 0:03. [facility], CR, CHEST 1VW (PORTABLE), 10/13/2013, 11:59. FINDINGS: Surgical changes and devices: None. Lungs and pleura: The aeration of the lungs is similar to the previous exam. There is no focal consolidation, effusion, or pneumothorax. No overt heart failure is evident. Mediastinum: Mediastinal contours appear normal. Heart size is normal. There is prominent aortic atherosclerosis. Bones and chest wall: No suspicious bony lesions. Overlying soft tissues appear unremarkable. IMPRESSION: Stable chest. No acute cardiopulmonary process is evident. Dictated by: Richie Goncalves M.D. on 09/17/2016 at 8:18 Approved by: Richie Goncalves M.D. on 09/17/2016 at 8:19 Cardiac Echo Impression Echocardiogram Report Name: ROSE MARIE RUIZ Date : 09/18/2016 Height: 64 in Hospital Exam Location: [facility] Weight: 161 lb Gender: Female BSA: 1.8 m2 : 1930 Age: 85 yrs BP: 158/70 mmHg Reason For Study: CHEST PAIN Ordering Physician: [facility] Performed By: Edwin Foreman Referring Physician: Dexter Diehl Interpretation Summary Normal sinus rhythm. Pulse is 55-60 bpm. Normal LV size and mild concentric LVH. 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 There is mid-inferior, mid-inferoseptal and distal septal hypokinesis c/w prior infarction. All other segments demonstrate normal wall motion. EF is 45-50%. Normal chamber sizes. Mild MAC with trace associated mitral regurgitation. Otherwise no significant valvular abnormalities. Compared to prior study 10/14/2013 pulse is slower than before. Septum appears a little less dynamic. EF is down from 50-55% on personal review to 45-50% Brief History The patient is an 85-year-old white female with dementia, coronary disease, hypertension, COPD and diabetes who was unable to tell me where she lives due to her dementia and poor memory. She according to the records lives at [facility] and she began complaining of what she initially told me was leg cramps. She had forgotten Kellee Mendez about the chest pain. I asked her about the chest pain she then described that she had severe chest pain this morning that made her want to "scream". According to the records the patient began complaining to the staff at [facility] of intermittent moderate chest pain/ pressure with an onset around 8 AM. The pain radiated to her left arm at the time. So should his symptoms included shortness of breath, left knee pain, chest pain with movement. Patient denied diaphoresis, nausea, lower extremity swelling. The patient reported that she went to get up and this morning and had instant pain in her left chest radiating to her left breast. Pain was exacerbated by movement. The patient reported to me that she fell a couple of days prior to admission. She then stated 4 days prior to admission. She then after that stated a week prior to admission. And according to the medical record in the ER doctor's note she stated that she fell a couple weeks prior to admission. She stated that she tripped on a seen on the concrete sidewalk outside of the [facility] manner. She said when she fell she landed on her hands with the palms down to prevent her from hitting her face and her right knee she states that the staff at [facility] has been putting ice on her right knee is starting to feel better. Today she woke up with chest pain which along this episode lasted for approximately 15 minutes. She denied any previous chest pain with movement following the fall denies any head injury following a fall. Patient was evaluated in the emergency room by Dr. Quincy Harley. The patient was found to have a slightly elevated white blood cell count of 11.9 her CBC was otherwise unremarkable. Troponin was drawn which was less than 0.010 and a magnesium level was found to be low at 1.6 there are no acute findings evident on EKG which showed normal sinus rhythm with a rate of 62, there was left ventricular hypertrophy, there is evidence of previous inferior and anterior infarct, overall however the EKG was unchanged compared with 2010 a d-dimer was performed which was found to be marginally elevated the CT Michael Johann was obtained and this was negative for pulmonary embolism. The patient received aspirin and Nitropaste. Given her elevated HEART score the patient was brought in under observation to the hospital service for further evaluation and treatment. Hospital Course The patient is an 85-year-old white female with dementia, coronary disease, hypertension, COPD and diabetes who was unable to tell me where she lives due to her dementia and poor memory. She according to the records lives at [facility] and she began complaining of what she initially told me was leg cramps. She had forgotten Kellee Mendez about the chest pain. I asked her about the chest pain she then described that she had severe chest pain this morning that made her want to "scream". According to the records the patient began complaining to the staff at [facility] of intermittent moderate chest pain/ pressure with an onset around 8 AM. The pain radiated to her left arm at the time. So should his symptoms included shortness of breath, left knee pain, chest pain with movement. Patient denied diaphoresis, nausea, lower extremity swelling. The patient reported that she went to get up and this morning and had instant pain in her left chest radiating to her left breast. Pain was exacerbated by movement. The patient reported to me that she fell a couple of days prior to admission. She then stated 4 days prior to admission. She then after that stated a week prior to admission. And according to the medical record in the ER doctor's note she stated that she fell a couple weeks prior to admission. She stated that she tripped on a seen on the concrete sidewalk outside of the [facility] manner. She said when she fell she landed on her hands with the palms down to prevent her from hitting her face and her right knee she states that the staff at [facility] has been putting ice on her right knee is starting to feel better. Today she woke up with chest pain which along this episode lasted for approximately 15 minutes. She denied any previous chest pain with movement following the fall denies any head injury following a fall. Patient was evaluated in the emergency room by Dr. Quincy Harley. The patient was found to have a slightly elevated white blood cell count of 11.9 her CBC was otherwise unremarkable. Troponin was drawn which was less than 0.010 and a magnesium level was found to be low at 1.6 there are no acute findings evident on EKG which showed normal sinus rhythm with a rate of 62, there was left ventricular hypertrophy, there is evidence of previous inferior and anterior infarct, overall however the EKG was unchanged compared with 2010 a d-dimer was performed which was found to be marginally elevated the CT Michael Wills was obtained and this was negative for pulmonary embolism. The patient received aspirin and Nitropaste. Given her elevated HEART score the patient was brought in under observation to the hospital service for further evaluation and treatment. # Chest pain - Patient does have a history of coronary disease and myocardial infarction so certainly could be due to acute coronary syndrome - However, due to the description of the pain being in her left breast and the tenderness in the upper right and left quadrants of her left breast and chest wall suspect this is atypical chest pain related to musculoskeletal injury due to her recent fall on cement. - We have trended troponins and they are negative. - We will control pain with analgesics beginning with Tylenol. We started Toradol and this is given the patient some relief. Along with a Lidoderm patch. - The patient had nuclear stress testing completed today due to the history of coronary artery disease and prior myocardial infarction. Patient was seen in consultation by Dr. Phillips and he has reviewed the patient's stress test and believes that the patient will be treated medically. # Type II diabetes mellitus - We will check blood sugars before meals and at bedtime - We will provide sliding scale subcutaneous insulin coverage - Continue home insulin regimen # Hypertension - Stable at present time - Continue home medications with amlodipine and propranolol. - We will monitor closely # Hyperlipidemia - We will continue Crestor # Chronic obstructive pulmonary disease - Continue close observation # Chronic kidney disease stage 3 - We will try to avoid nephrotoxic agents. - Monitor renal function closely. Disposition: Patient will likely be discharged back to [facility] today. Exam Vital Signs (Last) Date Time Temp Pulse Resp B/P Pulse Ox O2 Delivery O2 Flow Rate FiO2 09/20/16 13:10 36.4 69 17 157/81 96 Room Air Exam General: Patient is in no apparent distress. HEENT: Head is atraumatic and normocephalic. Eyes: Pupils are equally round and reactive to light and accommodation. Extraocular muscles are intact. Sclera are white, anicteric. Subconjunctival mucosa is pink. Ears and nose are unremarkable. Oropharynx: There is no mucosal lesions, there is no thrush, there is no pharyngitis. Neck: Is supple, there are no nodes, or masses or tenderness. Chest: Is clear to auscultation and percussion. There are no rales, rhonchi, wheezes or rubs. There is tenderness over the left breast and chest wall in the right upper quadrant and left upper quadrant of the breast. This tenderness has decreased slightly. Heart: Rate, rhythm is regular. There is no murmur, rub or gallop. Abdomen: Good bowel sounds are present. Abdomen is soft, nontender, no organomegaly or masses were appreciated. Extremities: Are symmetrical and well perfused. There is no edema, there is no cellulitis, no rash. Neurologic: There are no focal neurological deficits. Cranial nerves II through XII are intact. There are no sensory or motor deficits. However, the patient has very poor memory and is a very poor historian. She could not tell me where she lives and she initially could not tell me about her chest pain until I mentioned it. Once her memory was jagged however she was able to expound on the history of her chest pain etc. Psychiatric: Patients mood is calm and shows no sign of agitation. Genital: Deferred Rectal: Deferred Test 09/17/16 08:35 09/18/16 00:00 09/18/16 02:30 09/20/16 05:40 D-Dimer 0.89mg/L FEU (<0.50) Urine Color Yellow (YELLOW) Urine Appearance Clear (CLEAR,HAZY) Urine pH 6.5 (5.0-8.0) Urine Specific [place] 1.015 (1.003-1.035) Urine Protein Negativemg/dL (NEG,TRACE) Urine Glucose (UA) 500mg/dL (NEGATIVE) Urine Ketones Negativemg/dL (NEGATIVE) Urine Occult Blood Negative (NEGATIVE) Urine Nitrite Negative (NEGATIVE) Urine Bilirubin Negative (NEGATIVE) Urine Urobilinogen 1.0mg/dL (NORMAL) Urine Leukocyte Esterase Negative (NEGATIVE) Urine RBC 0-2/hpf (0-2) Urine WBC 0-5/hpf (0-5) Urine Epithelial Cells Few/hpf (NONE-MOD) Urine Crystals None seen (NONE SEEN) Urine Bacteria Few/hpf (NONE-FEW) Urine Hyaline Casts None/lpf (NONE) Urine Granular Casts None seen (NONE SEEN) Urine Waxy Casts None seen (NONE SEEN) Urine Red Blood Cell Casts None seen (NONE SEEN) Urine White Blood Cell Casts None seen (NONE SEEN) Urine Mucus None seen (None Seen) Urine Trichomonas None seen (NONE SEEN) Urine Yeast None (NONE SEEN) Urinalysis Comment None Urine Culture Reflexed Not indicated Hemoglobin A1c 8.4% (4.8-5.6) Phosphorus Level 3.5mg/dL (2.5-4.9) Troponin T < 0.010ug/L (0.0-0.011) White Blood Count 9.0th/mm3 (3.8-10.1) Red Blood Count 4.39mil/mm3 (3.90-5.20) Hemoglobin 12.3g/dL (12.0-15.6) Hematocrit 37.6% (35.0-46.0) Mean Corpuscular Volume 85.6fL (81-100) Mean Corpuscular Hemoglobin 28.0pg (27.0-35.0) Mean Corpuscular Hemoglobin Concent 32.7% (32.0-37.0) Red Cell Distribution Width 13.6% (12.3-15.4) Platelet Count 229bil/L (150-400) Neutrophils (%) (Auto) 67.4% (40-74) Lymphocytes (%) (Auto) 24.9% (14-46) Monocytes (%) (Auto) 6.2% (4-12) Eosinophils (%) (Auto) 1.2% (0-5) Basophils (%) (Auto) 0.1% (0-3) Sodium Level 140mEq/L (134-144) Potassium Level 4.2mEq/L (3.5-5.2) Chloride Level 104mEq/L (97-108) Carbon Dioxide Level 20mmol/L (18-29) Blood Urea Nitrogen 27mg/dL (8-27) Creatinine 0.86mg/dL (0.57-1.00) Estimat Glomerular Filtration Rate 90mL/min (>59) Glucose Level 106mg/dL (60-99) Calcium Level 9.3mg/dL (8.5-10.1) Magnesium Level 1.9mg/dL (1.6-2.6) Total Bilirubin 0.4mg/dL (0.0-1.2) Aspartate Amino Transf (AST/SGOT) 19U/L (0-50) Alanine Aminotransferase (ALT/SGPT) 11U/L (0-32) Alkaline Phosphatase 89U/L (25-165) Total Protein 6.1g/dL (6.4-8.4) Albumin 3.8g/dL (3.4-5.0) Discharge Medications Discharge Medications Amlodipine (Amlodipine) 10 Mg Tablet 10 MG PO DAILY (Reported) Aspirin (Aspirin) 325 Mg Tablet 325 MG PO DAILY (Reported) Cholecalciferol (Vitamin D3) (Vitamin D3) 2,000 Unit Capsule 2,000 UNIT PO DAILY (Reported) Citalopram (Citalopram) 20 Mg Tablet 20 MG PO DAILY (Reported) Insulin Detemir (Levemir U100 Insulin Vial) 100 Unit/1 Ml Vial 27 UNITS SUBQ QAM (Reported) Insulin Detemir (Levemir U100 Insulin Vial) 100 Unit/1 Ml Vial 33 UNITS SUBQ HS (Reported) Insulin Human Lispro (HumaLOG U100 Insulin Vial) 100 Unit/Ml Unit 7 UNITS SUBQ QAM (Reported) Insulin Human Lispro (HumaLOG U100 Insulin Vial) 100 Unit/Ml Unit 10 UNITS SUBQ DAILYWL (Reported) Check blood sugars before meals and at bedtime. Use correction factor only before meals. Blood Sugar Lispro Correction: <151, 0 units; 151-175, 1 unit; 176-200, 2 units; 201-225, 3 units; 226-250, 4 units; 251-275, 5 units; 276-300 , 6 units; 301-325, 7 units; 326-350, 8 units; 351-375, 9 units; 376-400, 10 units; >400, 12 units. Insulin Human Lispro (HumaLOG U100 Insulin Vial) 100 Unit/Ml Unit 8 UNITS SUBQ DAILYWD (Reported) Check blood sugars before meals and at bedtime. Use correction factor only before meals. Blood Sugar Lispro Correction: <151, 0 units; 151-175, 1 unit; 176-200, 2 units; 201-225, 3 units; 226-250, 4 units; 251-275, 5 units; 276-300 , 6 units; 301-325, 7 units; 326-350, 8 units; 351-375, 9 units; 376-400, 10 units; >400, 12 units. Isosorbide MN ER (Isosorbide MN ER) 60 Mg Tab.er.24h 60 MG PO DAILY (Reported) Lidocaine (Lidoderm) 700 Mg Adh..patch 1 PATCH TOPICAL Q24H Prescribed by: ANTHONY BURRELL MD Propranolol ER (Propranolol ER) 160 Mg Cap.sa.24h 160 MG PO DAILY (Reported) Rosuvastatin Calcium (Rosuvastatin Calcium) 10 Mg Tablet 10 MG PO HS (Reported) As needed Acetaminophen (Acetaminophen) 325 Mg Capsule 650 MG PO q4 hours PRN PRN For Pain (Reported) Dextran 70/Hypromellose/Pf (Artificial Tears Drops) 1 Each Droperette 1 DROP BOTH_EYES QID PRN PRN dry eyes (Reported) Loperamide (Loperamide) 2 Mg Capsule 2 MG PO Q4H PRN PRN For Diarrhea or Loose Stool (Reported) Loratadine (Claritin) 10 Mg Capsule 10 MG PO HS PRN PRN sinus congestion ( Reported) Mag Hydrox/Al Hydrox/Simeth (Antacid Suspension) 400 Mg-400 Mg-40 Mg/5 Ml Oral.susp 30 ML PO q2 hours PRN PRN For Dyspepsia or Heartburn (Reported) Magnesium Hydroxide (Milk of Magnesia) 400 Mg/5 Ml Oral.susp 30 ML PO DAILY PRN PRN For Constipation (Reported) Followup Plan Disposition: Patient is being discharged to [facility]. Discharge Diet: Heart Healthy Discharge Activity: No restrictions (The patient may resume usual activities gradually as tolerated.) Follow-up Provider: Dexter Diehl MD Follow-up with PCP in: 1 week Time spent Time spent on discharging this patient was greater than 35 minutes, over half of which was involved in counseling and coordination of care. Keny Burrell MD Sep 21, 2016 01:01
== END 2016-09-20 16:46 | disposition home or self-care (01) | DRG 313 ==
LOC: EDBD 08:31 → SED 08:31 → OBSVTOIN 16:27 → MPC 16:27
PROVIDERS: ADMIT Internal Medicine Infectious Disease; ATTEND Internal Medicine Infectious Disease
DX: R07.89 Other chest pain (principal); J44.9 Chronic obstructive pulmonary disease, unspecified; I25.10 Atherosclerotic heart disease of native coronary artery without angina pectoris; S29.091A Other injury of muscle and tendon of front wall of thorax, initial encounter; E11.9 Type 2 diabetes mellitus without complications; W01.0XXA Fall on same level from slipping, tripping and stumbling without subsequent striking against object, initial encounter; I12.9 Hypertensive chronic kidney disease with stage 1 through stage 4 chronic kidney disease, or unspecified chronic kidney disease; F03.90 Unspecified dementia, unspecified severity, without behavioral disturbance, psychotic disturbance, mood disturbance, and anxiety; N18.3 Chronic kidney disease, stage 3 (moderate); E78.5 Hyperlipidemia, unspecified; M10.9 Gout, unspecified; F17.200 Nicotine dependence, unspecified, uncomplicated; Z88.0 Allergy status to penicillin; Z79.4 Long term (current) use of insulin; I25.2 Old myocardial infarction; Y92.093 Driveway of other non-institutional residence as the place of occurrence of the external cause

== ENCOUNTER 2016-09-21 21:08 | Emergency (ER) | payer MEDICARE ==
[~2016-09-21] VITALS: Ht 162.6 cm; Wt 63.6 kg
[~2016-09-21 21:08] MED LIST changes: +ACET325C PO; -AMLO-39 PO; +AMLO10TA3 PO; -ASPI-351 PO; +ASPI325T32 PO; -ATEN100T4 PO; +CHOL200047 PO; +CITA20TA11 PO; -CREST10T PO; -Calcium 600 + Vit D; +DEXT1DRO8 BOTH_EYES; +INSLIS SUBQ; -INSU100I9 SUBQ; +INSU100V4 SUBQ; +ISOS60TA2 PO; -Insulin Lispro SUBQ; -Isosorbide Mononitrate PO; +LIDO700A6 TOPICAL; +LOPE2CAP PO; +LORA10CA PO; +MAG-95 PO; +MAGN400O4 PO; -Magnesium Oxide PO; -NIAC500SA PO; -POTA10TA14 PO; +PROP160C2 PO; +ROSU10TA24 PO
--- NOTE | 2016-09-21 21:26 | ED.REPORT ---
HPI-General Illness Date of Service Sep 21, 2016 ED Provider: Dr. Espinosa An 85 year old female with a history of HTN and COPD presents to the ED via EMS from [facility] complaining of left-sided chest paint. The patient was seen here recently for the same thing and thought to possibly have zoster. Was admitted and ruled out. She had a stress test performed on 09/19 that showed prior infarction but no ischemia. She has hyperesthesia to the skin on her left side, at the breast and shoulder. No rash. She states that it bothers her when something is touching her skin. She denies any SOB or cough. Nursing Notes Nursing Notes Reviewed: Yes Allergies: Coded Allergies: Barbiturates (Verified Allergy, Unknown, 09/17/16) Penicillins (Verified Allergy, Unknown, 09/17/16) latex (Verified Allergy, Unknown, 09/17/16) metformin (Verified Allergy, Unknown, 09/17/16) metronidazole (Verified Allergy, Unknown, 09/17/16) primidone (Verified Allergy, Unknown, 09/17/16) simvastatin (Verified Allergy, Unknown, 09/17/16) trazodone (Verified Allergy, Unknown, 09/17/16) adhesive tape (Verified Adverse Reaction, Intermediate, Rash, 09/17/16) Scheduled Amlodipine (Amlodipine) 10 Mg Tablet 10 MG PO DAILY Aspirin (Aspirin) 325 Mg Tablet 325 MG PO DAILY Cholecalciferol (Vitamin D3) (Vitamin D3) 2,000 Unit Capsule 2,000 UNIT PO DAILY Citalopram (Citalopram) 20 Mg Tablet 20 MG PO DAILY Insulin Detemir (Levemir U100 Insulin Vial) 100 Unit/1 Ml Vial 27 UNITS SUBQ QAM Insulin Detemir (Levemir U100 Insulin Vial) 100 Unit/1 Ml Vial 33 UNITS SUBQ HS Insulin Human Lispro (HumaLOG U100 Insulin Vial) 100 Unit/Ml Unit 7 UNITS SUBQ QAM Insulin Human Lispro (HumaLOG U100 Insulin Vial) 100 Unit/Ml Unit 10 UNITS SUBQ DAILYWL Check blood sugars before meals and at bedtime. Use correction factor only before meals. Blood Sugar Lispro Correction: <151, 0 units; 151-175, 1 unit; 176-200, 2 units; 201-225, 3 units; 226-250, 4 units; 251-275, 5 units; 276-300 , 6 units; 301-325, 7 units; 326-350, 8 units; 351-375, 9 units; 376-400, 10 units; >400, 12 units. Insulin Human Lispro (HumaLOG U100 Insulin Vial) 100 Unit/Ml Unit 8 UNITS SUBQ DAILYWD Check blood sugars before meals and at bedtime. Use correction factor only before meals. Blood Sugar Lispro Correction: <151, 0 units; 151-175, 1 unit; 176-200, 2 units; 201-225, 3 units; 226-250, 4 units; 251-275, 5 units; 276-300 , 6 units; 301-325, 7 units; 326-350, 8 units; 351-375, 9 units; 376-400, 10 units; >400, 12 units. Isosorbide MN ER (Isosorbide MN ER) 60 Mg Tab.er.24h 60 MG PO DAILY Lidocaine (Lidoderm) 700 Mg Adh..patch 1 PATCH TOPICAL Q24H Propranolol ER (Propranolol ER) 160 Mg Cap.sa.24h 160 MG PO DAILY Rosuvastatin Calcium (Rosuvastatin Calcium) 10 Mg Tablet 10 MG PO HS Scheduled PRN Acetaminophen (Acetaminophen) 325 Mg Capsule 650 MG PO q4 hours PRN PRN For Pain Dextran 70/Hypromellose/Pf (Artificial Tears Drops) 1 Each Droperette 1 DROP BOTH_EYES QID PRN PRN dry eyes Loperamide (Loperamide) 2 Mg Capsule 2 MG PO Q4H PRN PRN For Diarrhea or Loose Stool Loratadine (Claritin) 10 Mg Capsule 10 MG PO HS PRN PRN sinus congestion Mag Hydrox/Al Hydrox/Simeth (Antacid Suspension) 400 Mg-400 Mg-40 Mg/5 Ml Oral.susp 30 ML PO q2 hours PRN PRN For Dyspepsia or Heartburn Magnesium Hydroxide (Milk of Magnesia) 400 Mg/5 Ml Oral.susp 30 ML PO DAILY PRN PRN For Constipation General Time Seen by MD: 21:25 Transferred From: correction ([place]) Chief Complaint Chest pain Hx Obtained From: Patient, EMS Arrived By: Ambulance Sudden in Onset?: No Onset Occurred: 1 - 4 hours ago Symptom Duration: Since onset Location: : Chest (left-sided) Severity: Current: Moderate Severity: Maximum: Moderate Recent Healthcare: Recent doctor visit Similar Sx Previous: No Past Medical History Past Medical History Notes: Stress test performed on 09/19 that showed prior infarction but no ischemia. Echocardiogram October 2013: Concentric hypertrophy with global EF of 55-60%, wall motion abnormalities noted but stable compared with echo 2010, no evidence for valvular pathology Obtained medication list from [place] saying these are the pt's current routine medications: Amlodipine 10mg tab, Aspirin 325mg enteric tab, Citalopram 20mg tab, Humalog 100mL *Lispro 10mL every morning, before lunch, and before dinner, Isosorbide [place] 60mg ER tab, Levemir INJ vial every morning and night, Propranolol 160mg ER cap, Rosuvastatin 10mg tab, Truetrack test strips, Vitamin D(3) 2000 unit tab PRN: Acetaminophen 325 mg tab, Antacid (Rulox) susp, Artificial tears PVA 1.4%, Loperamide 2mg cap, Loratadine 10mg tab, Milk of Magnesia org 400mg/5mL Past Medical History 1. Coronary artery disease. Status post [place] around in 2003 and status post heart catheterization without intervention. Repeat heart catheterization in 2010 with multi-vessel disease, medically managed. 2. Hypertension. 3. Diabetes mellitus type 2. 4. Hyperlipidemia. 5. Chronic obstructive pulmonary disease. 6. Chronic kidney disease stage 3. 7. Gout. 8. Hyperlipidemia. History of dementia Past Surgical History 1. Total abdominal hysterectomy and bilateral salpingo-oophorectomy. 2. Small intestinal resection. 3. Cholecystectomy s/p cardiac catherization 2010 Family History noncontributory Smoking History Current Every Day Smoker Social History Lives at [facility] living side. Alcohol Use: Denies alcohol use Drug Use: Denies drug use Other Social History: Local resident Ambulatory Status Independent Review of Systems Decreased sensation to skin on left side at breast and shoulder. Full Review of Systems Respiratory: Denies: Non-productive cough, Shortness of breath Cardiovascular: Reports: Chest pain Complete sys rev & neg: except as marked. Physical Exam Vital Signs Vital Signs Date Time Temp Pulse Resp B/P Pulse Ox O2 Delivery O2 Flow Rate FiO2 09/21/16 21:29 36.5 74 18 129/57 94 Room Air Initial VS: Reviewed General/Constitutional: Awake, Alert Head / Eyes: Atraumatic, Normocephalic, PERRL, EOMI ENT: Atraumatic, Airway patent Respiratory / Chest: Atraumatic, Breath sounds NL, Breath sounds = bilat, No respiratory distress, No rales, No rhonchi, No wheezing Cardiovascular: Heart rate NL, Regular rhythm, Heart sounds NL, No gallop, No murmurs, No rubs Abdomen: No guarding, No rebound Skin: Warm, Dry Sensitivity to touch. Patient is sensitive from scapular tip to the left upper chest. She has a little bruising in the upper lateral left breast. Neurologic: Oriented X3, Speech NL Interpretation & Diagnostics Lab Results Interpretation Result Diagram: 09/21/16212409/21/162124 Test 09/21/16 21:25 White Blood Count 8.5th/mm3 (3.8-10.1) Red Blood Count 4.47mil/mm3 (3.90-5.20) Hemoglobin 12.7g/dL (12.0-15.6) Hematocrit 39.3% (35.0-46.0) Mean Corpuscular Volume 87.9fL (81-100) Mean Corpuscular Hemoglobin 28.4pg (27.0-35.0) Mean Corpuscular Hemoglobin Concent 32.3% (32.0-37.0) Red Cell Distribution Width 14.3% (12.3-15.4) Platelet Count 281bil/L (150-400) Neutrophils (%) (Auto) 68.8% (40-74) Lymphocytes (%) (Auto) 24.3% (14-46) Monocytes (%) (Auto) 5.3% (4-12) Eosinophils (%) (Auto) 1.4% (0-5) Basophils (%) (Auto) 0.1% (0-3) Hold Purple Top Tube Received (Received) Hold Blue Top Tube Received (Received) Sodium Level 143mEq/L (134-144) Potassium Level 4.1mEq/L (3.5-5.2) Chloride Level 103mEq/L (97-108) Carbon Dioxide Level 23mmol/L (18-29) Blood Urea Nitrogen 28mg/dL (8-27) Creatinine 0.89mg/dL (0.57-1.00) Estimat Glomerular Filtration Rate 87mL/min (>59) Glucose Level 304mg/dL (60-99) Calcium Level 9.7mg/dL (8.5-10.1) Magnesium Level 1.8mg/dL (1.6-2.6) Total Bilirubin 0.4mg/dL (0.0-1.2) Aspartate Amino Transf (AST/SGOT) 27U/L (0-50) Alanine Aminotransferase (ALT/SGPT) 21U/L (0-32) Alkaline Phosphatase 96U/L (25-165) Troponin T 0.010ug/L (0.0-0.011) Pro-B-Type Natriuretic Peptide 90.35pg/mL (0-738) Total Protein 6.9g/dL (6.4-8.4) Albumin 4.0g/dL (3.4-5.0) Hold Red Top Tube Received (Received) Hold [place] Top Tube Received (Received) ECG Interpretation ECG Interpretation: Rate is 70. Sinus rhythm. Probable left atrial enlargement. Left ventricular hypertrophy. Inferior infarct, old. Anterior infarct, old. No change from 09/17/2016. Time: 21:47 Interpreted by: ED physician X-Ray Chest Interpretation Chest Xray Interpretation: IMPRESSION: No acute cardiopulmonary findings. Dictated by: Laura Licona M.D. on 09/21/2016 at 21:52 Approved by: Laura Licona M.D. on 09/21/2016 at 21:53 Interpretation / Wet Read by: Interpret - Radiologist Re-Eval/Medical Decision Med Decision/Clinical Course Chest pain which is same as what she experienced during recent admission. Clearly seems to be related to the chest wall, given her increased sensitivity to light touch zoster is considered however I see no rash. She has had these symptoms for several days so I do not think that acyclovir would be likely help. Do not believe we need to trend her troponin tonight for the same reason. She was given fentanyl on the way into the hospital she is feeling better now I will send her home with a prepack of hydrocodone for use in the event of severe pain. Source of Hx: Old records, EMS Time of Eval: 22:32 Re-Evaluation/Progress Note: Explained test results, diagnosis, plan for discharge, and plan for patient to follow up with her regular doctor. Patient understands and agrees with the plan. All questions addressed. She agrees to take a cab home. Counseled Regarding: Diagnosis, Lab results, Need for follow-up, When/why to return to ED Discharge & Departure Primary Impression: Non-cardiac chest pain Disposition: Home Discharge Condition All VS Reviewed: Yes Condition: Stable (ERASED) Additional Instructions: there is no suggestion of a serious medical problem causing chest pain tonight. continue lidoderm, may use hydrocodone/apap 1 every 6 hours as needed for pain. follow up with primary care next week. return to ED for fevers, shortness of breath Referrals: Dexter Diehl MD (PCP) Scribe Attestation Portions of this note were transcribed by Danny Caba. I, Dr. Espinosa personally performed the history, physical exam and medical decision-making; I reviewed and confirmed the accuracy of the information in the transcribed note. Signed by: Rosenda Oliveros, 09/21/2016, 1510. copies to: Dexter Diehl MD, Donald L MD Sep 21, 2016 21:26 Danny Caba Sep 21, 2016 21:56
[2016-09-21 21:29] VITALS: BP 129/57; PULSE 74; RESP 18; O2SAT 94
[2016-09-21 21:51] LABS: BASOPHILS % (AUTO) 0.1 % (0-3); EOSINOPHILS % (AUTO) 1.4 % (0-5); MONOCYTES % (AUTO) 5.3 % (4-12); Mean Corpuscular Hemoglobin 28.4 pg (27.0-35.0); Mean Corpuscular Volume 87.9 fL (81-100); NEUTROPHILS % (AUTO) 68.8 % (40-74); Platelet Count 281 bil/L (150-400)
--- NOTE | 2016-09-21 21:55 | DRSVH ---
PROCEDURE: X-RAY CHEST ONE VIEW, PORTABLE ([id number]) INDICATIONS: chest pain TECHNIQUE: One view of the chest was acquired. COMPARISON: [facility], CR, XR CHEST 1VW (PORTABLE), 09/17/2016, 8:42. FINDINGS: Surgical changes and devices: None. Lungs and pleura: No pleural effusions or pneumothorax. Lungs are clear. Mediastinum: Mediastinal contours appear normal. Heart size is normal. Bones and chest wall: No suspicious bony lesions. Overlying soft tissues appear unremarkable. IMPRESSION: No acute cardiopulmonary findings. Dictated by: Laura Licona M.D. on 09/21/2016 at 21:52 Approved by: Laura Licona M.D. on 09/21/2016 at 21:53
[2016-09-21 22:21] LABS: Magnesium 1.8 mg/dL (1.6-2.6); TROPONIN T 0.01 ug/L (0.0-0.011)
[2016-09-21] MEDS ORDERED: _HYDROcodone/APAP 5-325 mg Tablet PO PRN (22:35)
[2016-09-21 23:00] VITALS: BP 127/91; PULSE 68; RESP 21; O2SAT 93
[2016-09-22 00:04] VITALS: BP 132/48; PULSE 68; RESP 17; O2SAT 91
== END 2016-09-22 00:03 | disposition home or self-care (01) ==
LOC: SED 21:08 → EDBD 21:08 → SED 09-22 00:03
DX: R07.89 Other chest pain (principal); I12.9 Hypertensive chronic kidney disease with stage 1 through stage 4 chronic kidney disease, or unspecified chronic kidney disease; J44.9 Chronic obstructive pulmonary disease, unspecified; I25.10 Atherosclerotic heart disease of native coronary artery without angina pectoris; I25.2 Old myocardial infarction; E11.9 Type 2 diabetes mellitus without complications; E78.5 Hyperlipidemia, unspecified; F17.200 Nicotine dependence, unspecified, uncomplicated; Z88.8 Allergy status to other drugs, medicaments and biological substances; Z88.0 Allergy status to penicillin; Z91.040 Latex allergy status; Z79.82 Long term (current) use of aspirin; Z79.4 Long term (current) use of insulin

== ENCOUNTER 2016-09-24 01:59 | Emergency (ER) | payer MEDICARE ==
[~2016-09-24] VITALS: Ht 162.6 cm; Wt 63.6 kg
--- NOTE | 2016-09-24 01:59 | ED.REPORT ---
HPI-Chest Pain 40 and Over Date of Service Sep 24, 2016 ED Provider: Dr. Keny Starks M.D. An 85 year old female with a medical history including CAD, hypertension, diabetes mellitus, COPD, chronic kidney disease, and dementia presents to the ED via EMS from [facility] with left-sided chest wall pain onset two days ago, after a mechanical ground-level fall. The pain radiates down her left arm. The patient did not hit her head or lose consciousness in the fall. She denies abdominal pain or other symptoms. EMS found the patient with a BP of 177/83, a respiration rate of 32, and otherwise normal vital signs. The patient took one Vicodin before EMS arrival and her pain resolved en route. She was seen in the ED two nights ago with similar symptoms. Nursing Notes Stated Complaint: L CHEST WALL PAIN Nursing Notes Reviewed: Yes Allergies: Coded Allergies: Barbiturates (Verified Allergy, Unknown, 09/24/16) Penicillins (Verified Allergy, Unknown, 09/24/16) latex (Verified Allergy, Unknown, 09/24/16) metformin (Verified Allergy, Unknown, 09/24/16) metronidazole (Verified Allergy, Unknown, 09/24/16) primidone (Verified Allergy, Unknown, 09/24/16) simvastatin (Verified Allergy, Unknown, 09/24/16) trazodone (Verified Allergy, Unknown, 09/24/16) adhesive tape (Verified Adverse Reaction, Intermediate, Rash, 09/24/16) Scheduled Amlodipine (Amlodipine) 10 Mg Tablet 10 MG PO DAILY Aspirin (Aspirin) 325 Mg Tablet 325 MG PO DAILY Cholecalciferol (Vitamin D3) (Vitamin D3) 2,000 Unit Capsule 2,000 UNIT PO DAILY Citalopram (Citalopram) 20 Mg Tablet 20 MG PO DAILY Insulin Detemir (Levemir U100 Insulin Vial) 100 Unit/1 Ml Vial 27 UNITS SUBQ QAM Insulin Detemir (Levemir U100 Insulin Vial) 100 Unit/1 Ml Vial 33 UNITS SUBQ HS Insulin Human Lispro (HumaLOG U100 Insulin Vial) 100 Unit/Ml Unit 7 UNITS SUBQ QAM Insulin Human Lispro (HumaLOG U100 Insulin Vial) 100 Unit/Ml Unit 10 UNITS SUBQ DAILYWL Check blood sugars before meals and at bedtime. Use correction factor only before meals. Blood Sugar Lispro Correction: <151, 0 units; 151-175, 1 unit; 176-200, 2 units; 201-225, 3 units; 226-250, 4 units; 251-275, 5 units; 276-300 , 6 units; 301-325, 7 units; 326-350, 8 units; 351-375, 9 units; 376-400, 10 units; >400, 12 units. Insulin Human Lispro (HumaLOG U100 Insulin Vial) 100 Unit/Ml Unit 8 UNITS SUBQ DAILYWD Check blood sugars before meals and at bedtime. Use correction factor only before meals. Blood Sugar Lispro Correction: <151, 0 units; 151-175, 1 unit; 176-200, 2 units; 201-225, 3 units; 226-250, 4 units; 251-275, 5 units; 276-300 , 6 units; 301-325, 7 units; 326-350, 8 units; 351-375, 9 units; 376-400, 10 units; >400, 12 units. Isosorbide MN ER (Isosorbide MN ER) 60 Mg Tab.er.24h 60 MG PO DAILY Lidocaine (Lidoderm) 700 Mg Adh..patch 1 PATCH TOPICAL Q24H Propranolol ER (Propranolol ER) 160 Mg Cap.sa.24h 160 MG PO DAILY Rosuvastatin Calcium (Rosuvastatin Calcium) 10 Mg Tablet 10 MG PO HS Scheduled PRN Acetaminophen (Acetaminophen) 325 Mg Capsule 650 MG PO q4 hours PRN PRN For Pain Dextran 70/Hypromellose/Pf (Artificial Tears Drops) 1 Each Droperette 1 DROP BOTH_EYES QID PRN PRN dry eyes Hydrocodone-Acetaminophen 5-325 mg (Hydrocodone-Acetaminophen 5-325 mg) 1 Each Tablet 1 TABLET PO Q4H PRN PRN For Pain Loperamide (Loperamide) 2 Mg Capsule 2 MG PO Q4H PRN PRN For Diarrhea or Loose Stool Loratadine (Claritin) 10 Mg Capsule 10 MG PO HS PRN PRN sinus congestion Mag Hydrox/Al Hydrox/Simeth (Antacid Suspension) 400 Mg-400 Mg-40 Mg/5 Ml Oral.susp 30 ML PO q2 hours PRN PRN For Dyspepsia or Heartburn Magnesium Hydroxide (Milk of Magnesia) 400 Mg/5 Ml Oral.susp 30 ML PO DAILY PRN PRN For Constipation General Time Seen by MD: 01:58 Chief Complaint Chest pain Hx Obtained From: Patient, EMS Arrived By: Ambulance Sudden in Onset?: Yes Onset Occurred: 2 days ago Context of Onset: Fall Symptom Duration: Since onset Location: : Chest left Quality: Painful Radiation: : Arm left Severity: Current: No pain currently Severity: Maximum: Moderate Pertinent Negative: Pt denies other symptoms Relieved by: Prescription meds Context Related History: Reports: Acute coronary syndrome, Diabetes mellitus, Hypertension Recent Healthcare: Recent doctor visit Past Medical History Past Medical History Notes: Stress test performed on 09/19 that showed prior infarction but no ischemia. Echocardiogram October 2013: Concentric hypertrophy with global EF of 55-60%, wall motion abnormalities noted but stable compared with echo 2010, no evidence for valvular pathology Obtained medication list from [place] saying these are the pt's current routine medications: Amlodipine 10mg tab, Aspirin 325mg enteric tab, Citalopram 20mg tab, Humalog 100mL *Lispro 10mL every morning, before lunch, and before dinner, Isosorbide [place] 60mg ER tab, Levemir INJ vial every morning and night, Propranolol 160mg ER cap, Rosuvastatin 10mg tab, Truetrack test strips, Vitamin D(3) 2000 unit tab PRN: Acetaminophen 325 mg tab, Antacid (Rulox) susp, Artificial tears PVA 1.4%, Loperamide 2mg cap, Loratadine 10mg tab, Milk of Magnesia org 400mg/5mL Past Medical History 1. Coronary artery disease. Status post [place] around in 2003 and status post heart catheterization without intervention. Repeat heart catheterization in 2010 with multi-vessel disease, medically managed. 2. Hypertension. 3. Diabetes mellitus type 2. 4. Hyperlipidemia. 5. Chronic obstructive pulmonary disease. 6. Chronic kidney disease stage 3. 7. Gout. 8. Hyperlipidemia. 9. History of dementia Past Surgical History 1. Total abdominal hysterectomy and bilateral salpingo-oophorectomy. 2. Small intestinal resection. 3. Cholecystectomy s/p cardiac catherization 2010 Family History The patient's mother at 87 palpitations of diabetes mellitus. The patient thinks her father at the age of 85 of cancer she does not know what type. The patient has 7 sisters they have all of cancer or heart disease. One of breast cancer. The patient had 2 brothers both of cancer. She was unable to elaborate on any of the cancer diagnoses other than the one sister with breast cancer. Smoking History Current Every Day Smoker Social History Lives at [facility]. Alcohol Use: Denies alcohol use Drug Use: Denies drug use Other Social History: Local resident Ambulatory Status Independent Review of Systems Review of Systems Note: - Head trauma Constitutional: Denies: Fever Respiratory: Denies: Non-productive cough, Shortness of breath Cardiovascular: Reports: Chest pain (Left-sided chest wall) GI: Denies: Abdominal pain, Diarrhea, Vomiting Musculoskeletal: Reports: Extremity pain (Left arm) Neurologic: Denies: Change LOC Complete sys rev & neg: except as marked. Physical Exam Initial Vital Signs Vital Signs (First) Date Time Temp Pulse Resp B/P Pulse Ox O2 Delivery O2 Flow Rate FiO2 09/24/16 02:08 36.7 65 18 152/103 97 Room Air Initial VS: Reviewed Head / Eyes: Atraumatic, Normocephalic ENT: Conjunctiva normal, No scleral icterus Neck: Supple, Full range of motion Extremities: Vascular intact, Neuro intact, No swelling Skin: Warm, Dry, No cyanosis Neurologic: Alert, Oriented Psychiatric: Mood/affect normal, Behavior normal, Normal thought content General/Constitutional: Awake, Alert Respiratory / Chest: Breath sounds NL, Breath sounds = bilat, No respiratory distress Chest Wall / Ribs: Positive: Chest tender upper L Trauma - General: Positive: Ecchymosis (3cm circular bruise high on left breast ) Cardiovascular: Heart rate NL, Regular rhythm, Heart sounds NL Abdomen: Soft Tenderness/Guarding/Rebound: Positive: Tender LUQ... (Mild) Interpretation & Diagnostics Lab Results Interpretation Test 09/24/16 02:00 Hold Purple Top Tube Received (Received) Hold Blue Top Tube Received (Received) Hold [place] Top Tube Received (Received) X-Ray Chest Interpretation Chest Xray Interpretation: No fracture Normal x-ray View: AP & lat Interpretation / Wet Read by: Wet read ED physician Re-Eval/Medical Decision Med Decision/Clinical Course 85-year-old with sharp rib pain after a fall, presents again initially with recurrent pain, but completely relieved by the time of her arrival here. She has Vicodin for this pain, but had not taken it until calling 911 tonight. She took one at that point, now feels fine. Discussed with her caregivers at [place]. Vicodin can be given by staff on a every 4 hours basis when necessary. X-rays of the ribs are negative for apparent fracture. Discharged in stable condition Source of Hx: Old records Time of Eval: 03:12 Patient Status: Condition improved Re-Evaluation/Progress Note: Discussed with patient x-ray and lab results, diagnosis, and plan for discharge. Follow-up and return to the ER instructions given. Patient agrees with plan for care and all questions were addressed. Counseled Regarding: Diagnosis, Lab results, Need for follow-up, When/why to return to ED Discharge & Departure Shift Change Sign-Out Response to Therapy: Improved Primary Impression: Chest wall pain Disposition: Home Discharge Condition All VS Reviewed: Yes Condition: Improved Patient Instructions: Costochondritis (ED), Rib Fracture (ED) Additional Instructions: We do not see any evidence of rib fracture or other dangerous condition. The enclosed instructions discussed rib fracture, but rib strain is treated essentially the same. Continue your Vicodin sparingly as needed for pain. Follow-up with your doctor in the office. Return if any problems with breathing or other new symptoms of concern Referrals: Dexter Diehl MD (PCP) Scribe Attestation Portions of this note were transcribed by Abby Dillard. I, Dr. Starks, personally performed the history, physical exam, and medical decision-making; I reviewed and confirmed the accuracy of the information in the transcribed note. Signed by: Rosenda Sanford, 09/24/2016, 04:30 copies to: Dexter Diehl MD, Christopher W MD Sep 24, 2016 01:59 ABBY DILLARD Sep 24, 2016 02:06
[2016-09-24 02:08] VITALS: BP 152/103; PULSE 65; RESP 18; O2SAT 97
[2016-09-24] MEDS ORDERED: Ketorolac 15 mg/mL Inj IVPUSH ONE (03:00)
[2016-09-24] MEDS ORDERED: HYDR-4003 PO (03:27)
[2016-09-24 04:34] VITALS: BP 141/62; PULSE 61; RESP 16; O2SAT 92
--- NOTE | 2016-09-24 08:18 | DRSVH ---
PROCEDURE: X-RAY LEFT RIBS INCLUDEING PA CHEST, MINUMUM THREE VIEWS ([id number]) INDICATIONS: fall, rib pain, bruising TECHNIQUE: 2 views of the left ribs were acquired, along with a single view chest. COMPARISON: [facility], CR, XR CHEST 1VW (PORTABLE), 09/21/2016, 21:28. FINDINGS: Surgical changes and devices: None. Bones and chest wall: Suspect nondisplaced anterior third rib fracture. No suspicious bony lesions. Overlying soft tissues appear unremarkable. Lungs and pleura: No pleural effusions or pneumothorax. Lungs appear clear. Mediastinum: Mediastinal contours appear normal. Heart size is normal. IMPRESSION: Suspect nondisplaced anterior left third rib fracture. Dictated by: Sully Ojeda M.D. on 09/24/2016 at 8:04 Approved by: Sully Ojeda M.D. on 09/24/2016 at 8:16
== END 2016-09-24 04:34 | disposition home or self-care (01) ==
LOC: SED 01:59
DX: R07.9 Chest pain, unspecified (principal); I13.10 Hypertensive heart and chronic kidney disease without heart failure, with stage 1 through stage 4 chronic kidney disease, or unspecified chronic kidney disease; N18.3 Chronic kidney disease, stage 3 (moderate); E11.22 Type 2 diabetes mellitus with diabetic chronic kidney disease; I25.10 Atherosclerotic heart disease of native coronary artery without angina pectoris; I25.2 Old myocardial infarction; E78.5 Hyperlipidemia, unspecified; Z90.710 Acquired absence of both cervix and uterus; F17.200 Nicotine dependence, unspecified, uncomplicated; Z79.4 Long term (current) use of insulin; Z79.82 Long term (current) use of aspirin; Z79.899 Other long term (current) drug therapy; Z88.0 Allergy status to penicillin; Z88.1 Allergy status to other antibiotic agents; Z91.040 Latex allergy status; Z88.8 Allergy status to other drugs, medicaments and biological substances
CPT/HCPCS: 71101; 96374; 99284; J1885